=== PATIENT | female | born 1950 ===

== ENCOUNTER 2020-05-25 12:44 | Outpatient (REF) | payer MEDICARE, SELFPAY ==
[2020-05-25 13:37] LABS: MANUAL DIFF FLAG NO
[2020-05-25 13:48] LABS: Basophils Absolute Auto 0.1 X10*3/uL (0.0-0.2); Basophils Percent Auto 0.6 % (0-2); Eosinophils Absolute Auto 0.1 X10*3/uL (0.0-0.4); Eosinophils Percent Auto 1.4 % (0-4); Hematocrit 42.6 % (37-47); Hemoglobin 14.1 g/dl (12.0-16.0); Imm Gran Abs Auto 0.03 X10*3/uL (0.00-0.03); Imm Gran Pct Auto 0.3 % (0.0-0.4); Lymphocytes Absolute Auto 2.1 X10*3/uL (1.2-4.9); Lymphocytes Percent Auto 24.3 % (20-40); Mean Corpuscular HGB Conc 33.1 g/dl (31.0-35.0); Mean Corpuscular Hemoglobin 29.5 pg (27.0-33.0); Mean Corpuscular Volume 89.1 fL (80-98); Mean Platelet Volume 11.9 fL (9.4-12.3); Monocytes Absolute Auto 0.5 X10*3/uL (0.1-1.2); Monocytes Percent Auto 6.1 % (2-11); Neutrophils Absolute Auto 5.9 X10*3/uL (2.0-8.3); Neutrophils Percent Auto 67.3 % (45-73); Platelet Count 278 X10*3/uL (160-400); Red Blood Count 4.78 X10*6/uL (4.20-5.50); Red Cell Distribution Width 13.2 % (11.0-16.0); White Blood Count 8.7 X10*3/uL (4.8-10.8)
[2020-05-25 14:07] LABS: Anion Gap 13 (12-20); Blood Urea Nitrogen 10 mg/dL (9-16); Calcium 9.2 mg/dL (8.4-10.2); Carbon Dioxide 32 mmol/L (22-29); Chloride 99 mmol/L (96-108); Cholesterol 232 mg/dL; Estimated Glomerular Filt Rate > 60; Glucose Fasting 119 mg/dL (60-99); HDL Cholesterol 52 mg/dL; LDL Cholesterol Calculated 160 mg/dl; Potassium 3.4 mmol/l (3.3-5.1); Sodium 141 mmol/L (135-145); Triglycerides 104 mg/dL
[2020-05-25 21:54] LABS: Reflex LDLD? No
== END 2020-05-25 12:45 | disposition home or self-care (01) ==
LOC: HO.LAB 12:44
PROVIDERS: PCP Internal Medicine; Visit Provider Nurse Practitioner Family
DX: G30.9 Alzheimer's disease, unspecified (principal); F02.80 Dementia in other diseases classified elsewhere, unspecified severity, without behavioral disturbance, psychotic disturbance, mood disturbance, and anxiety
CPT/HCPCS: 36415; 80048; 80061; 85025

== ENCOUNTER 2020-05-29 15:19 | Emergency (ER) | payer MEDICARE, SELFPAY ==
[2020-05-29 16:25] VITALS: BP 169/74; PULSE 85; RESP 18; TEMP 37.1; O2SAT 98; BMI 27.4
--- NOTE | 2020-05-29 18:21 | ED_ITS ---
HPI - General Adult General Chief complaint: General Medical Stated complaint: Med Refill Time Seen by Provider: 05/29/20 18:05 Source: family Mode of arrival: ambulatory Limitations: language barrier (The patient's daughter is Italian speaking only, translator interpreter was used to obtain information) History of Present Illness HPI narrative: 69-year-old female who presents emergency department for evaluation of medication refills. The patient has dementia and the information came from the patient's daughter. The patient apparently takes 3 medications for her dementia. They had a routine visit today to see the PCP however the patient PCP has changed and they do not accept the patient's insurance. The daughter was concerned that the patient has 3 medications for her dementia and she does not have these medications therefore she came to the emergency department for evaluation. According to the daughter, the patient has been in her usual state of health with no symptoms of illness. Related Data Home Medications Medication Instructions Recorded Confirmed memantine 10 mg tablet 10 mg PO QPM 05/03/20 Previous Rx's Medication Instructions Recorded donepezil 10 mg PO BEDTIME #30 tab 05/29/20 memantine 10 mg PO QPM 30 Days #30 tab 05/29/20 mirtazapine 30 mg PO BEDTIME #30 tab 05/29/20 Allergies Allergy/AdvReac Type Severity Reaction Status Date / Time No Known Allergies Allergy Verified 05/29/20 16:25 Review of Systems Review of Systems: Yes all other systems are reviewed and are negative PMFSH Past Medical History PMFSH Narrative: The patient lives with her daughter, she does not smoke, she does not drink and she does not use alcohol. Medical History Dementia Social History Social History Advance Directives: No Advance Directives Information Provided: Yes Physical Exam Vital Signs: Vital Signs: Last Vital Signs Temp 98.7 F 05/29/20 16:25 Pulse 85 05/29/20 16:25 Resp 18 05/29/20 16:25 BP 169/74 H 05/29/20 16:25 Pulse Ox 98 05/29/20 16:25 Body Mass Index 27.4 Const: General: cooperative Orientation/consciousness: oriented to person Limitations: no limitations HENMT: Head: Yes normal to inspection, Yes normocephalic and Yes atraumatic Ears: external ears normal General nose exam: Normal external nose present Face and sinus: Yes normal facial exam Mouth: Normal oral and palatal mucosa present Throat: Yes posterior oropharynx normal Eyes: Periorbital: periorbital findings normal Eyelids: Yes eyelids normal Conjunctivae: conjunctivae normal Sclerae: sclerae normal Corneas: corneas normal Pupils: Equal, round and reactive pupils present Direct Ophthalmoscopy: normal light reflex Neck: Neck: Yes full ROM, Yes no lymphadenopathy, Yes no meningeal signs, Yes trachea midline and Yes supple Chest: Chest palpation & inspection: normal inspection of the chest and normal palpation of entire chest wall Resp: Effort & Inspection: normal respiratory effort and able to speak in complete sentences Auscultation: clear to auscultation bilaterally Cardio: Rate: regular rate Rhythm: regular rhythm Heart sounds: S1 normal heart sound present, S2 normal heart sound present and no murmurs GI: Inspection: Yes normal to inspection Palpation (GI): Soft to palpation, nontender, no guarding, not rigid and No hepatosplenomegaly present : General: Yes no CVA tenderness Back/Spine/Pelvis: Back: no CVA tenderness Cervical Spine: normal cervical lordosis Thoracic/Lumbar Spine: thoracic and lumbar spine normal to inspection Skin: Lesions: no lesions Rashes: no rashes Wounds: no wounds Neuro: General: oriented to person and no meningeal signs Cranial nerves: Yes CN's II-XII intact bilaterally and Yes Equal, round and reactive pupils present Motor exam (neuro): 5/5 motor strength present throughout Extrem: General: Yes normal to inspection and Yes full ROM Psych: Appearance: well kempt Mental Status: mental status grossly normal Attitude: cooperative Course Course Course Narrative: 69-year-old female who presents emergency department for evaluation of medication refill for her dementia. Patient has been in her usual state of health and he needs a refill of her medications but was unable to obtain at since her PCP is changed and a new PCP does not accept her insurance. Patient's physical examination was unremarkable except for some slight elevated blood pressure of 169/74. I did contact [facility] and the patient is on the following medications, donepezil 10 mg at night, mirtazapine 30 mg at night, memantine 10 mg daily. I did write a prescription to refill these medications for the patient and the patient was discharged home in the care of her daughter. Discharge Plan Discharge Clinical Impression: Encounter for medication refill Dementia Qualifiers: Dementia type: unspecified type Dementia behavioral disturbance: without behavioral disturbance Qualified Code(s): F03.90 - Unspecified dementia without behavioral disturbance Patient Disposition: Home, Self-Care Additional Instructions: I called [facility] on [facility] and they had the following medications listed for your mother. Donepezil 10 mg at night Mirtazapine 30 mg at night Memantine 10 mg daily I did write a prescription for these 3 medications and sent them to the [facility] on [facility]. When you get home you should make sure that these are the 3 medications that your mother is taking. If these medications are different, please call the emergency department and I will change the medications. Prescriptions: New mirtazapine 30 mg tablet 30 mg PO BEDTIME Qty: 30 RF: 0 memantine 10 mg tablet 10 mg PO QPM 30 Days Qty: 30 RF: 0 donepezil 10 mg tablet 10 mg PO BEDTIME Qty: 30 RF: 0 No Action memantine 10 mg tablet 10 mg PO QPM RF: 0
== END 2020-05-29 19:05 | disposition home or self-care (01) ==
PROVIDERS: Emergency Provider Emergency Medicine Emergency Medical Services; PCP Internal Medicine
DX: F03.90 Unspecified dementia, unspecified severity, without behavioral disturbance, psychotic disturbance, mood disturbance, and anxiety (principal); Z76.0 Encounter for issue of repeat prescription
CPT/HCPCS: 99283; 99284

== ENCOUNTER 2020-08-07 11:58 | Outpatient (REF) | payer MEDICARE, SELFPAY ==
[2020-08-07 13:12] LABS: MANUAL DIFF FLAG NO
[2020-08-07 13:19] LABS: Basophils Absolute Auto 0.1 X10*3/uL (0.0-0.2); Basophils Percent Auto 0.9 % (0-2); Eosinophils Absolute Auto 0.8 X10*3/uL (0.0-0.4); Eosinophils Percent Auto 7.9 % (0-4); Hematocrit 43.7 % (37-47); Hemoglobin 14.2 g/dl (12.0-16.0); Imm Gran Abs Auto 0.07 X10*3/uL (0.00-0.03); Imm Gran Pct Auto 0.7 % (0.0-0.4); Lymphocytes Absolute Auto 2.3 X10*3/uL (1.2-4.9); Lymphocytes Percent Auto 22.6 % (20-40); Mean Corpuscular HGB Conc 32.5 g/dl (31.0-35.0); Mean Corpuscular Hemoglobin 28.9 pg (27.0-33.0); Mean Corpuscular Volume 88.8 fL (80-98); Mean Platelet Volume 12.4 fL (9.4-12.3); Monocytes Absolute Auto 0.9 X10*3/uL (0.1-1.2); Neutrophils Percent Auto 58.9 % (45-73); Platelet Count 259 X10*3/uL (160-400); Red Blood Count 4.92 X10*6/uL (4.20-5.50); Red Cell Distribution Width 13.4 % (11.0-16.0); White Blood Count 10.1 X10*3/uL (4.8-10.8)
[2020-08-07 13:36] LABS: Anion Gap 11 (12-20); Blood Urea Nitrogen 8 mg/dL (9-16); Calcium 8.9 mg/dL (8.4-10.2); Carbon Dioxide 33 mmol/L (22-29); Chloride 99 mmol/L (96-108); Cholesterol 213 mg/dL; Estimated Glomerular Filt Rate > 60; Glucose Fasting 81 mg/dL (60-99); HDL Cholesterol 50 mg/dL; Potassium 3.4 mmol/L (3.3-5.1); Sodium 140 mmol/L (135-145); Triglycerides 479 mg/dL
[2020-08-07 13:46] LABS: Glucose Urine UA NEG (NEG); Leukocyte Esterase Urine NEG (NEG); Nitrite Urine NEG (NEG); PH 6.5 (5.0-8.0); Urine Blood 2+ (NEG); Urine Ketones NEG (NEG); Urine Protein NEG (NEG-TRACE)
[2020-08-07 13:50] LABS: Appearance Urine CLEAR; Color Urine YELLOW
[2020-08-07 14:13] LABS: Vitamin B12 596 pg/mL (200-900)
[2020-08-07 14:19] LABS: Syphilis Screen Nonreactive (Nonreactive)
[2020-08-07 15:07] LABS: WBC Urine 0-2 /HPF (0-4)
== END 2020-08-07 11:59 | disposition home or self-care (01) ==
LOC: HO.LAB 11:58
PROVIDERS: Psychiatry & Neurology Neurology; Absent Provider Internal Medicine; PCP Nurse Practitioner Family; Visit Provider Nurse Practitioner Family
DX: G30.9 Alzheimer's disease, unspecified (principal); F02.80 Dementia in other diseases classified elsewhere, unspecified severity, without behavioral disturbance, psychotic disturbance, mood disturbance, and anxiety; I10 Essential (primary) hypertension
CPT/HCPCS: 36415; 80048; 80061; 81001; 82607; 85025; 86780

== ENCOUNTER 2020-10-04 11:58 | Outpatient (REF) | payer MEDICARE, SELFPAY ==
[2020-10-04 13:17] LABS: Glucose Urine UA NEG (NEG); Leukocyte Esterase Urine NEG (NEG); Nitrite Urine NEG (NEG); PH 7.5 (5.0-8.0); Urine Blood 2+ (NEG); Urine Ketones NEG (NEG); Urine Protein NEG (NEG-TRACE)
[2020-10-04 13:18] LABS: Appearance Urine CLOUDY; Color Urine YELLOW
[2020-10-04 14:01] LABS: Amorphous Sediment Urine 2+ /LPF; Squamous Epithelial Cell Urine TRACE /LPF; WBC Urine 0 /HPF (0-4)
[2020-10-04 14:05] LABS: Cholesterol 224 mg/dL; HDL Cholesterol 56 mg/dL; LDL Cholesterol Calculated 128 mg/dl; Triglycerides 201 mg/dL
== END 2020-10-04 11:59 | disposition home or self-care (01) ==
LOC: HO.LAB 11:58
PROVIDERS: Nurse Practitioner Family; PCP Internal Medicine; Visit Provider Internal Medicine
DX: E11.9 Type 2 diabetes mellitus without complications (principal); I10 Essential (primary) hypertension
CPT/HCPCS: 36415; 80061; 81001; 81003

== ENCOUNTER 2021-09-25 14:47 | Outpatient (REF) | payer MEDICARE, SELFPAY ==
--- NOTE | ~2021-09-25 | XR_ITS ---
EXAMINATION: XR SHOULDER, LEFT CLINICAL INFORMATION: Pain. History of fall yesterday. COMPARISON: None TECHNIQUE: Three views of the left shoulder. FINDINGS: There is question of a nondisplaced fracture of the proximal humerus with a cortical step-off seen in the medial humeral neck and 2 diagonal lines of sclerosis over the humeral head extending to the greater tuberosity. Bone alignment is normal. Glenohumeral joint is normal. There is arthritis at the acromioclavicular joint. Soft tissues are unremarkable. XR/XR shoulder LT min 2V IMPRESSION: Question nondisplaced fracture of the proximal humerus.
== END 2021-09-25 14:48 | disposition home or self-care (01) ==
LOC: HO.XRAY 14:47
PROVIDERS: PCP Internal Medicine; Visit Provider Internal Medicine
DX: M25.512 Pain in left shoulder (principal)
CPT/HCPCS: 73030

== ENCOUNTER 2021-11-17 15:14 | Emergency (ER) | payer MEDICARE, SELFPAY ==
--- NOTE | ~2021-11-17 | CT_ITS ---
EXAMINATION: CT HEAD WITHOUT CONTRAST CLINICAL INFORMATION: Fall COMPARISON: None TECHNIQUE: Contiguous axial imaging was performed from the skull base to vertex without intravenous administration of contrast. This CT examination was performed using dose optimization techniques as appropriate, variously including the following: *Automated exposure control *Adjustment of mA and/or kV according to patient size (this includes techniques or standardized protocols for targeted exams where dose is matched to indication/reason for exam; i.e. extremities or head) *Use of iterative reconstruction technique DLP: 712 mGy-cm FINDINGS: There is no evidence of acute intracranial hemorrhage or territorial infarction. No abnormal mass effect or midline shift is seen. Figueroa to white matter differentiation is well preserved. No extra-axial fluid collections are identified. The ventricles are normal in size. There is mild periventricular white matter hypoattenuation consistent with chronic small vessel ischemic disease. Mild volume loss is noted. No acute fracture is seen. There is mild left frontal scalp soft tissue swelling with focus of gas. There is extensive opacification of the paranasal sinuses with relative sparing of the left sphenoid sinus and posterior ethmoid air cells. CT/CT head/brain wo con IMPRESSION: No acute intracranial findings identified. Mild left frontal scalp soft tissue injury. Extensive paranasal sinus opacification.
--- NOTE | ~2021-11-17 | XR_ITS ---
EXAMINATION: XR KNEE, LEFT CLINICAL INFORMATION: Fall. COMPARISON: None. TECHNIQUE: Four views of the left knee. FINDINGS: Equivocal irregularity of the upper pole of the patella in which a fracture cannot be excluded. No other fractures. No malalignment. Decreased bone mineralization. Mild joint space narrowing of the medial compartment. No chondrocalcinosis. No joint effusion. No unexpected radiopaque foreign bodies. XR/XR knee LT 4V IMPRESSION: 1. Equivocal cortical irregularity of the upper pole of the patella raising the possibility of a fracture. Correlate with a patellar sunrise view. 2. Mild degenerative osteoarthritis of the medial compartment.
--- NOTE | ~2021-11-17 | XR_ITS ---
EXAMINATION: XR HAND, LEFT CLINICAL INFORMATION: Fall, pain. COMPARISON: None TECHNIQUE: PA, lateral, and oblique views of the left hand. FINDINGS: Decreased bone mineralization. No acute fractures or malalignment. Severe degenerative osteoarthritis of the third and fourth DIP joints with significant joint space narrowing and marginal osteophytes. Moderate degenerative osteoarthritis of the first CMC joint and triscaphe space. No erosions. Mild nonspecific soft tissue swelling. No unexpected radiopaque foreign bodies. XR/XR hand LT min 3V IMPRESSION: 1. No acute fracture or malalignment. 2. Multifocal degenerative osteoarthritis, more notable in the distal interphalangeal joints of the third and fourth digits.
[2021-11-17 16:37] VITALS: BP 131/74; PULSE 86; RESP 18; TEMP 37.1; O2SAT 98; BMI 27.4
[2021-11-18 00:21] VITALS: BP 166/80; PULSE 85; RESP 16; TEMP 36.6; O2SAT 98
--- NOTE | 2021-11-18 00:21 | ED_ITS ---
HPI - Fall General Chief Complaint: Fall Stated Complaint: Fall/head in on 11/16 Time Seen by Provider: 11/18/21 00:14 Source: patient and family Mode of arrival: ambulatory Limitations: other (dementia) History of Present Illness MD complaint: fall Onset (ago): day(s) (11/17 after religion in evening) Fall from: standing Fall witnessed: yes, by family Place fall occurred: other (walking up two steps) Loss of consciousness: none Symptoms prior to fall: none Context: tripped/slipped Location of injury: head Location of injury - extremities: left: hand and knee Severity: mild Quality: dull Associated symptoms (after fall): other (pain to hand and knee, abrasion to left face) Related Data Previous Rx's Medication Instructions Recorded multivit with min-folic 1 tab PO DAILY 2 months #60 tabs 06/09/20 acid-lutein 400 mcg-250 mcg chewable tablet (Centrum Silver) mirtazapine 30 mg tablet 30 mg PO BEDTIME #90 tabs 08/20/21 acetaminophen 500 mg tablet 1,000 mg PO Q6H PRN pain (scale 09/11/21 score 7-10) #20 tabs donepezil 10 mg tablet 10 mg PO DAILY #90 tabs 09/11/21 ibuprofen 600 mg tablet 600 mg PO Q8H PRN pain #20 tabs 09/11/21 memantine 10 mg tablet 10 mg PO DAILY #90 tabs 09/13/21 sertraline 25 mg tablet 25 mg PO DAILY #90 tabs 10/10/21 amlodipine 5 mg tablet 5 mg PO DAILY #30 tabs 11/09/21 Allergies Allergy/AdvReac Type Severity Reaction Status Date / Time No Known Allergies Allergy Verified 09/25/21 14:27 Review of Systems Review of Systems: Constitutional : No Fever, No Chills ENT/Mouth : No Ear Pain, No Hoarseness, No sore throat Eyes: No Eye Pain, No Swelling, No Redness, No Foreign Body Cardiovascular : No Chest Pain, No SOB Respiratory : No Cough, No Dyspnea Gastrointestinal : No Nausea, No Vomiting, No Diarrhea, No abdominal Pain Genitourinary : No Dysuria, No Hematuria Musculoskeletal : positive joint pain, No Myalgias, No Joint Swelling Skin : No Skin lacerations, No rash, pos abrasions Neuro : No Weakness, No Numbness, No Loss of Consciousness, No Dizziness, No Headache Psych : No Anxiety/Panic, No Depression Heme/Lymph: no easy bruising, no Lymphadenopathy Endocrine : No Polyuria, No Polydipsia All other systems reviewed and are negative [facility] Past Medical History Source: obtained from family Medical History Alzheimer disease Alzheimer disease Dementia Hypertension Surgical History History of breast surgery Family History Family History Mother Alzheimer disease Other History of breast surgery Social History Social History Housing: Apartment Alcohol intake: never Patient Tobacco Use Status: Never used Tobacco e-Cigarette/Vaping Use: Never Used Second Hand Smoke Exposure: No Advance Directives: No Advance Directives Information Provided: Yes service: No Current occupational status: unemployed Cognitive needs: No Hearing needs: No Vision needs: No Physical Exam Vital Signs: Vital Signs: Last Vital Signs Temp 97.8 F 11/18/21 00:21 Pulse 85 11/18/21 00:21 Resp 16 11/18/21 00:21 BP 166/80 H 11/18/21 00:21 Pulse Ox 98 11/18/21 00:21 O2 Del Method 11/18/21 00:21 BMI result Body Mass Index 27.4 Appearance: Alert. Oriented X3. No acute distress. Eyes: Pupils equal, round and reactive to light. ENT: Pharynx normal. Abrasions and small contusions to L eyebrow and L zygoma area Neck: Normal inspection. Neck supple. CVS: Normal heart rate and rhythm. Pulses normal. Respiratory: No respiratory distress. Breath sounds normal. Abdomen: Soft and nontender. Skin: Skin warm and dry. Normal skin color. Normal skin turgor. Extremities: No lower extremity edema. L knee over patella small contusion, L hand over 4th and 5th metacarpals contusion noted - distal NV intact Neuro: Oriented X 3. No motor deficit. No sensory deficit. Course Course Course Narrative: possible small patella fracture will place in immobilizer and follow up with PCP with repeat xrays in 5 days Procedures Orthopedic Splinting/Casting Injury #1: Side: left Lower Extremity Injury Location: knee Lower Extremity Immobilizer: knee immobilizer MDM - Fall MDM Narrative Medical decision making narrative: 71 yo female with hx of dementia, HTN was walking up the religion stairs and tripped going up the two stairs - has injury to head no blood thinners, given age and dementia will need CT head, xrays of L hand and L knee for falls - dispo per results and findings. Discharge Plan Discharge Clinical Impression: Contusion, Head injury, Injury of left patella Patient Disposition: Home, Self-Care Instructions: Head Injury (ED), Bone Bruise (ED) Additional Instructions: posible derrick?a ?clarita de fractura en la r?jaylin repita las radiograf?as con el m?dico en 5 d?as, use inmovilizador hasta entonces. carga de peso seg?n lo tolerado Prescriptions: No Action mirtazapine 30 mg tablet 30 mg PO BEDTIME Qty: 90 0RF memantine 10 mg tablet 10 mg PO DAILY Qty: 90 0RF sertraline 25 mg tablet 25 mg PO DAILY Qty: 90 8RF amlodipine 5 mg tablet 5 mg PO DAILY Qty: 30 3RF Centrum Silver 400-250 mcg tablet,chewable 1 tab PO DAILY 60 Days Qty: 60 0RF donepezil 10 mg tablet 10 mg PO DAILY Qty: 90 0RF ibuprofen 600 mg tablet 600 mg PO Q8H PRN (Reason: pain) Qty: 20 0RF acetaminophen 500 mg tablet 1,000 mg PO Q6H PRN (Reason: pain (scale score 7-10)) Qty: 20 0RF Referrals: Po,Bhanu Musa MD [Primary Care Provider] - 5 days
== END 2021-11-18 01:20 | disposition home or self-care (01) ==
PROVIDERS: Emergency Provider Emergency Medicine; PCP Internal Medicine
DX: S80.212A Abrasion, left knee, initial encounter (principal); S00.93XA Contusion of unspecified part of head, initial encounter; M79.642 Pain in left hand; G44.309 Post-traumatic headache, unspecified, not intractable; M54.2 Cervicalgia; M25.562 Pain in left knee; I10 Essential (primary) hypertension; W10.9XXA Fall (on) (from) unspecified stairs and steps, initial encounter; Y93.9 Activity, unspecified; Y92.9 Unspecified place or not applicable; Y99.9 Unspecified external cause status; Z79.899 Other long term (current) drug therapy
CPT/HCPCS: 29505; 70450; 73130; 73564; 99283

== ENCOUNTER 2022-06-12 12:15 | Outpatient (REF) | payer MEDICARE, SELFPAY ==
[2022-06-12 12:30] LABS: MANUAL DIFF FLAG NO
[2022-06-12 13:20] LABS: Basophils Absolute Auto 0.1 X10*3/uL (0.0-0.2); Basophils Percent Auto 0.8 % (0-2); Eosinophils Absolute Auto 0.2 X10*3/uL (0.0-0.4); Eosinophils Percent Auto 2.5 % (0-4); Hematocrit 41.8 % (37.0-47.0); Hemoglobin 13.8 g/dl (12.0-16.0); Imm Gran Abs Auto 0.02 X10*3/uL (0.00-0.03); Imm Gran Pct Auto 0.3 % (0.0-0.4); Lymphocytes Absolute Auto 3.3 X10*3/uL (1.2-4.9); Mean Corpuscular Hemoglobin 28.3 pg (27.0-33.0); Mean Corpuscular Volume 85.7 fL (80.0-98.0); Mean Platelet Volume 12.1 fL (9.4-12.3); Monocytes Absolute Auto 0.6 X10*3/uL (0.1-1.2); Monocytes Percent Auto 8.2 % (2-11); Neutrophils Absolute Auto 3.1 x10*3/uL (2.0-8.3); Neutrophils Percent Auto 43.2 % (45-73); Platelet Count 269 X10*3/uL (160-400); Red Blood Count 4.88 X10*6/uL (4.20-5.50); Red Cell Distribution Width 13.9 % (11.0-16.0); White Blood Count 7.2 X10*3/uL (4.8-10.8)
[2022-06-12 14:00] LABS: Anion Gap 16 (12-20); Blood Urea Nitrogen 10 mg/dL (9-16); Carbon Dioxide 25 mmol/L (22-29); Chloride 105 mmol/L (96-108); Estimated Glomerular Filt Rate > 60; Glucose Random 88 mg/dL (60-115); Potassium 3.5 mmol/L (3.3-5.1); Sodium 142 mmol/L (135-145)
[2022-06-12 14:20] LABS: Thyroid Stimulating Hormone 0.35 uIU/mL (0.32-4.0)
== END 2022-06-12 12:16 | disposition home or self-care (01) ==
LOC: HO.LAB 12:15
PROVIDERS: PCP Internal Medicine; Visit Provider Internal Medicine
DX: Z13.0 Encounter for screening for diseases of the blood and blood-forming organs and certain disorders involving the immune mechanism (principal); R51.9 Headache, unspecified; E03.9 Hypothyroidism, unspecified
CPT/HCPCS: 36415; 80048; 84443; 85025

== ENCOUNTER 2022-12-05 11:38 | Outpatient (AMB) | payer MEDICARE, SELFPAY ==
--- NOTE | 2022-12-05 11:40 | MHC.PC.OV ---
Vital Signs 12/05/22 11:42 Height 5 ft 6 in Weight 130 lb 6 oz BMI 21.0 BP 110/62 Blood Pressure Location Lt brachial Position Sitting Pulse 80 Pulse Source Pulse Oximeter Pulse Oximetry (%) 97 Oxygen Delivery Method Room Air Intake Visit Reasons: 6m F/U DM Intake Note: Patient is here to follow up on HTN. 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: Present Accompanied by: Daughter Allergies No Known Allergies Allergy (Verified 12/05/22 11:41) Medication List - Last Reconciled 12/05/22 by Clint Caputo MD acetaminophen 1,000 mg (2 x 500 mg) PO Q6H PRN amlodipine 5 mg PO DAILY donepezil 10 mg PO DAILY ibuprofen 600 mg PO Q8H PRN memantine 10 mg PO DAILY mirtazapine 30 mg PO BEDTIME [id number] acid-lutein 400-250 mcg (Centrum Silver) 1 tab PO DAILY 2 months sertraline 25 mg PO DAILY Tobacco use date assessed: 12/05/22 Fall risk assessment: No Falls in past year Last assessed Fall Risk: 12/05/22 HPI 6m F/U DM HPI Details dementia HTN and depression; stable on meds PFSH Medical History (Updated 12/05/22 @ 12:47 by Clint Caputo MD) Alzheimer disease Alzheimer disease Dementia Hypertension Surgical History History of breast surgery Family History Mother Alzheimer disease Other History of breast surgery Social History Housing: Apartment Alcohol intake: never Patient Tobacco Use Status: Never used Tobacco e-Cigarette/Vaping Use: Never Used Second Hand Smoke Exposure: No service: No Current occupational status: unemployed Cognitive needs: No Hearing needs: No Vision needs: No Questionnaire PHQ-9 Over the last 2 weeks, how often have you been bothered by any of the following problems? 1. Little interest or pleasure in doing things: not at all 2. Feeling down, depressed, or hopeless: not at all 3. Trouble falling or staying asleep, or sleeping too much: not at all 4. Feeling tired or having little energy: not at all 5. Poor appetite or overeating: not at all 6. Feeling bad about yourself - or that you are a failure or have let yourself or your family down: not at all 7. Trouble concentrating on things, such as reading the newspaper or watching television: not at all 8. Moving or speaking so slowly that other people could have noticed. Or the opposite - being so fidgety or restless that you have been moving around a lot more than usual: not at all 9. Thoughts that you would be better off or of hurting yourself in some way: not at all Total score: 0 Depression Screening Interpretation: Negative 99995 - PHQ-9 Billing: Yes Source: Developed by Drs. Bill Diego, Laurie Teague, Sigifredo Nuñez and colleagues, with an educational shari from [employer]. Thrive Questionnaire Date Thrive assessed: 12/05/22 I am a: Patient What is your living situation today?: I have a steady place to live Within the past 12 months, did the food you bought not last and you didn't have the money to get more?: Never true Within the past 12 months, did you worry whether your food would run out before you got money to buy more?: Never true Do you have trouble paying for medicines?: No Do you have trouble getting transportation to medical appointments?: No Do you have trouble paying your heating and electricity bill?: No Do you have trouble taking care of your child, family member or friend?: No Do you have trouble with day-to-day activities such as bathing, preparing meals, shopping, managing finances, etc.?: No Are you currently unemployed and looking for a job?: No Are you interested in more education?: No Currently or been in a relationship where the following occur: no concerns reported AUDIT C Alcohol Use Questionnaire (AUDIT-C) 1. How often do you have a drink containing alcohol?: Never Total Score: 0 Score Reviewed/Action Taken: Yes JULIAN-7 AMB Questionnaire JULIAN-7 Date JULIAN - 7 assessed: 12/05/22 Feeling nervous, anxious, or on edge: 0 = Not at all Not being able to stop or control worryin = Not at all Worrying too much about different things: 0 = Not at all Trouble relaxin = Not at all Being so restless that it is hard to sit still: 0 = Not at all Becoming easily annoyed or irritable: 0 = Not at all Feeling afraid as if something awful might happen: 0 = Not at all Total JULIAN-7 score (0-4 normal; 5-9 mild; 10-14 moderate; 15-21 severe): 0 Source: Developed by Drs. Bill Diego, Laurie Teague, Sigifredo Nuñez and colleagues, with an educational shari from [employer]. JULIAN-7 Assessment Billing JULIAN-7 Assessment Tool: JULIAN-7 Assessment 63721 Review of Systems Const Denies chills, Denies fatigue, Denies headache(s) and Denies weight loss Eyes Denies change in vision, Denies diplopia and Denies eye pain ENT Denies vertigo, Denies dizziness, Denies headache(s) and Denies nasal discharge Card Denies chest pain, Denies rapid heart rate and Denies dyspnea on exertion Resp Denies chest congestion, Denies cough, Denies pain with cough and Denies dyspnea on exertion GI Denies abdominal pain, Denies hematochezia and Denies change in bowel habits Musc Denies myalgias, Denies arthralgias and Denies joint swelling Skin/Breast Denies lesions and Denies unusual bruising Neuro Denies vertigo, Denies dizziness, Denies headache(s) and Denies focal weakness Endo Denies fatigue Physical exam (Primary Care) Vital Signs: Last Vital Signs Pulse 80 12/05/22 11:42 BP 110/62 12/05/22 11:42 Pulse Ox 97 12/05/22 11:42 Oxygen Delivery Method Room Air 12/05/22 11:42 BMI result Body Mass Index 21.0 Tobacco/Smoking Status: Tobacco use Status Tobacco use date assessed 12/05/22 12/05/22 11:42 Patient Tobacco Use Status Never used Tobacco 12/05/22 11:42 e-Cigarette/Vaping Use Never Used 12/05/22 11:42 PHQ-9: PHQ-9 Score PHQ-9: Total score 0 12/05/22 11:42 Depression Screening Interpretation: Negative Thrive Assessment: Date of Thrive Assessment Date Thrive assessed 12/05/22 12/05/22 11:42 Currently or been in a relationship where the following occur: no concerns reported Const General: cooperative, healthy appearing and no acute distress Orientation/consciousness: oriented to person, oriented to place and oriented to time HENMT Head: Yes normal to inspection, Yes normocephalic and Yes atraumatic Mouth: Normal oral and palatal mucosa present and tongue normal Throat: Yes posterior oropharynx normal and Yes uvula midline Eyes General: appearance normal, both eyes and all related structures Neck Neck: Yes normal visual inspection, Yes full ROM and Yes no lymphadenopathy Thyroid: Thyroid normal Carotids: normal carotid upstroke Chest Chest palpation & inspection: normal inspection of the chest Resp Effort & Inspection: normal respiratory effort and able to speak in complete sentences Auscultation: clear to auscultation bilaterally Cardio Jugular venous distension: no JVD Palpation: normal PMI Rate: regular rate Rhythm: regular rhythm Heart sounds: S1 normal heart sound present and S2 normal heart sound present GI Inspection: Yes normal to inspection Palpation (GI): Soft to palpation and No hepatosplenomegaly present Auscultation: normal bowel sounds General: Yes no CVA tenderness Back/Spine/Pelvis Back: no CVA tenderness Skin General skin exam: no rashes or lesions noted Neuro General: oriented to person, oriented to place and oriented to time Extrem General: Yes normal to inspection and Yes full ROM Assessment and Plan Assessment & Plan (1) Alzheimer disease: Code(s): G30.9 - Alzheimer's disease, unspecified; F02.80 - Dementia in other diseases classified elsewhere, unspecified severity, without behavioral disturbance, psychotic disturbance, mood disturbance, and anxiety Plan: stable; same meds (2) Hypertension: Code(s): I10 - Essential (primary) hypertension Plan: stable; same meds (3) Depression: Code(s): F32.A - Depression, unspecified Plan: stable; same meds Orders: Orders Comprehensive [place]. Panel Fast Today N28.9 - Disorder of kidney and ureter, unspecified Lipid Panel Today E78.5 - Hyperlipidemia, unspecified Thyroid Stimulating Hormone Today E03.9 - Hypothyroidism, unspecified Complete Blood Count Auto Diff Today D64.9 - Anemia, unspecified Coding Level of Care Code Est Pt Level 4 (24237) Diagnoses Alzheimer disease G30.9; F02.80 Hypertension I10 Depression F32.A Additional Codes JULIAN-7 Assessment Billing - JULIAN-7 Assessment Tool: JULIAN-7 Assessment [id number] ([id number])
[2022-12-05 11:42] VITALS: BP 110/62; PULSE 80; O2SAT 97; BMI 21.0
== END 2022-12-05 13:12 | disposition home or self-care (01) ==
PROVIDERS: PCP Internal Medicine; Visit Provider Internal Medicine
DX: G30.9 Alzheimer's disease, unspecified (principal); F02.80 Dementia in other diseases classified elsewhere, unspecified severity, without behavioral disturbance, psychotic disturbance, mood disturbance, and anxiety; I10 Essential (primary) hypertension; F32.A Depression, unspecified
CPT/HCPCS: 99214

== ENCOUNTER 2023-06-04 10:52 | Outpatient (REF) | payer MEDICARE, SELFPAY ==
[2023-06-04 11:13] LABS: MANUAL DIFF FLAG NO
[2023-06-04 11:57] LABS: Basophils Absolute Auto 0.1 X10*3/uL (0.0-0.2); Basophils Percent Auto 1.1 % (0-2); Eosinophils Absolute Auto 0.2 X10*3/uL (0.0-0.4); Eosinophils Percent Auto 2.8 % (0-4); Hematocrit 43.5 % (37.0-47.0); Hemoglobin 14.6 g/dl (12.0-16.0); Imm Gran Abs Auto 0.03 X10*3/uL (0.00-0.03); Imm Gran Pct Auto 0.5 % (0.0-0.4); Lymphocytes Absolute Auto 3.2 X10*3/uL (1.2-4.9); Lymphocytes Percent Auto 50.1 % (20-40); Mean Corpuscular HGB Conc 33.6 g/dl (31.0-35.0); Mean Corpuscular Hemoglobin 29.3 pg (27.0-33.0); Mean Corpuscular Volume 87.2 fL (80.0-98.0); Mean Platelet Volume 11.4 fL (9.4-12.3); Monocytes Absolute Auto 0.6 X10*3/uL (0.1-1.2); Monocytes Percent Auto 8.8 % (2-11); Neutrophils Absolute Auto 2.3 x10*3/uL (2.0-8.3); Neutrophils Percent Auto 36.7 % (45-73); Platelet Count 287 X10*3/uL (160-400); Red Blood Count 4.99 X10*6/uL (4.20-5.50); Red Cell Distribution Width 13.7 % (11.0-16.0); White Blood Count 6.4 X10*3/uL (4.8-10.8)
[2023-06-04 12:30] LABS: Alanine Aminotransferase 9 U/L (0-31); Albumin Level 3.7 g/dL (3.5-5.0); Alkaline Phosphatase 98 U/L (39-117); Anion Gap 13 (12-20); Aspartate Amino Transferase 15 U/L (5-31); Bilirubin Total 0.6 mg/dL (0.0-1.0); Blood Urea Nitrogen 9 mg/dL (9-16); Calcium 9.3 mg/dL (8.4-10.2); Carbon Dioxide 31 mmol/L (22-29); Chloride 103 mmol/L (96-108); Cholesterol 228 mg/dL (<200); Estimated Glomerular Filt Rate > 60; Glucose Fasting 92 mg/dL (60-99); HDL Cholesterol 48 mg/dL (>40); LDL Cholesterol Calculated 153 mg/dL (<100); Sodium 144 mmol/L (135-145); Total Protein 8.3 g/dL (6.5-8.0); Triglycerides 136 mg/dL (<150)
[2023-06-04 12:36] LABS: Thyroid Stimulating Hormone 0.61 uIU/mL (0.32-4.0)
== END 2023-06-04 10:53 | disposition home or self-care (01) ==
LOC: HO.LAB 10:52
PROVIDERS: PCP Internal Medicine; Visit Provider Internal Medicine
DX: E03.9 Hypothyroidism, unspecified (principal); E78.5 Hyperlipidemia, unspecified; N28.9 Disorder of kidney and ureter, unspecified; D64.9 Anemia, unspecified
CPT/HCPCS: 36415; 80053; 80061; 84443; 85025

== ENCOUNTER 2023-06-04 11:34 | Outpatient (AMB) | payer MEDICARE, SELFPAY ==
--- NOTE | 2023-06-04 11:36 | A.OFFPC_ITS ---
Vital Signs 06/04/23 11:37 Height 5 ft 6 in Weight 127 lb BMI 20.5 BP 120/74 Blood Pressure Location Lt brachial Position Sitting Pulse 76 Pulse Source Pulse Oximeter Pulse Oximetry (%) 98 Oxygen Delivery Method Room Air Intake Visit Reasons: 6M. 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 Planner: Present Accompanied by: Daughter Allergies No Known Allergies Allergy (Verified 06/04/23 11:37) Medication List - Last Reconciled 06/04/23 by Clint Caputo MD acetaminophen 1,000 mg (2 x 500 mg) PO Q6H PRN amlodipine 5 mg PO DAILY donepezil 10 mg PO DAILY ibuprofen 600 mg PO Q8H PRN memantine 10 mg PO DAILY mirtazapine 30 mg PO BEDTIME [id number] acid-lutein 400-250 mcg (Centrum Silver) 1 tab PO DAILY 2 months sertraline 25 mg PO DAILY trazodone 50 mg PO TID PRN Tobacco use date assessed: 06/04/23 Fall risk assessment: No Falls in past year Last assessed Fall Risk: 06/04/23 Dental Screening Dental Screen Date: 06/04/23 Did you have a dental visit in the last 12 months?: Yes Did you have a dental problem in the last 6 months where you did not have access to dental care?: No Was dental information given to patient?: Patient has dentist HPI 6M. F/U-Alzheimer's HPI Details progressive dementia; family caring for her at home and [facility] Medical History (Updated 12/05/22 @ 12:47 by Clint Caputo MD) Dementia Hypertension Alzheimer disease Alzheimer disease Surgical History History of breast surgery Family History Mother Alzheimer disease Other History of breast surgery Social History Housing: Apartment Alcohol intake: never Patient Tobacco Use Status: Never used Tobacco e-Cigarette/Vaping Use: Never Used Second Hand Smoke Exposure: No service: No Current occupational status: unemployed Cognitive needs: No Hearing needs: No Vision needs: No Questionnaire PHQ-9 Over the last 2 weeks, how often have you been bothered by any of the following problems? 1. Little interest or pleasure in doing things: not at all 2. Feeling down, depressed, or hopeless: not at all 3. Trouble falling or staying asleep, or sleeping too much: not at all 4. Feeling tired or having little energy: not at all 5. Poor appetite or overeating: not at all 6. Feeling bad about yourself - or that you are a failure or have let yourself or your family down: not at all 7. Trouble concentrating on things, such as reading the newspaper or watching television: not at all 8. Moving or speaking so slowly that other people could have noticed. Or the opposite - being so fidgety or restless that you have been moving around a lot more than usual: not at all 9. Thoughts that you would be better off or of hurting yourself in some way: not at all Total score: 0 Depression Screening Interpretation: Negative Depression Screening Done: Yes 66774 - PHQ-9 Billing: Yes Source: Developed by Drs. Bill Diego, Laurie Teague, Sigifredo Nuñez and colleagues, with an educational shari from [facility]. Thrive Questionnaire Date Thrive assessed: 06/04/23 I am a: Patient What is your living situation today?: I have a steady place to live Within the past 12 months, did the food you bought not last and you didn't have the money to get more?: Never true Within the past 12 months, did you worry whether your food would run out before you got money to buy more?: Never true Do you have trouble paying for medicines?: No Do you have trouble getting transportation to medical appointments?: No Do you have trouble paying your heating and electricity bill?: No Do you have trouble taking care of your child, family member or friend?: No Do you have trouble with day-to-day activities such as bathing, preparing meals, shopping, managing finances, etc.?: No Are you currently unemployed and looking for a job?: No Are you interested in more education?: No Please select the resources that you would like help with: None THRIVE Score: 0 AUDIT C Alcohol Use Questionnaire (AUDIT-C) 1. How often do you have a drink containing alcohol?: Never Total Score: 0 Score Reviewed/Action Taken: Yes JULIAN-7 AMB Questionnaire JULIAN-7 Date JULIAN - 7 assessed: 06/04/23 Feeling nervous, anxious, or on edge: 0 = Not at all Not being able to stop or control worryin = Not at all Worrying too much about different things: 0 = Not at all Trouble relaxin = Not at all Being so restless that it is hard to sit still: 0 = Not at all Becoming easily annoyed or irritable: 0 = Not at all Feeling afraid as if something awful might happen: 0 = Not at all Total JULIAN-7 score (0-4 normal; 5-9 mild; 10-14 moderate; 15-21 severe): 0 Source: Developed by Drs. Bill Diego, Laurie Teague, Sigifredo Nuñez and colleagues, with an educational shari from [facility]. Review of Systems Const Denies chills, Denies headache(s) and Denies weight loss ENT Denies headache(s) Card Denies chest pain, Denies syncope, Denies irregular heart rhythm and Denies dyspnea Resp Denies chest congestion, Denies cough and Denies dyspnea GI Denies abdominal pain, Denies change in stool character, Denies nausea and Denies vomiting Musc Denies deformity and Denies joint swelling Neuro Denies syncope and Denies headache(s) Physical exam (Primary Care) Vital Signs: Last Vital Signs Pulse 76 06/04/23 11:37 BP 120/74 06/04/23 11:37 Pulse Ox 98 06/04/23 11:37 Oxygen Delivery Method Room Air 06/04/23 11:37 BMI result Body Mass Index 20.5 Tobacco/Smoking Status: Tobacco use Status Tobacco use date assessed 06/04/23 06/04/23 11:38 Patient Tobacco Use Status Never used Tobacco 06/04/23 11:38 e-Cigarette/Vaping Use Never Used 06/04/23 11:38 PHQ-9: PHQ-9 Score PHQ-9: Total score 0 06/04/23 11:38 Depression Screening Interpretation: Negative Thrive Assessment: Date of Thrive Assessment Date Thrive assessed 06/04/23 06/04/23 11:38 Const General: cooperative, comfortable, no acute distress and alert Neck Neck: Yes no lymphadenopathy Thyroid: Thyroid normal Resp Effort & Inspection: normal respiratory effort Auscultation: clear to auscultation bilaterally Percussion: percussion normal Cardio Jugular venous distension: no JVD Palpation: normal PMI Rate: regular rate Rhythm: regular rhythm Heart sounds: S1 normal heart sound present and S2 normal heart sound present GI Inspection: Yes normal to inspection Palpation (GI): No hepatosplenomegaly present Skin General skin exam: no rashes or lesions noted Extrem General: Yes no clubbing, cyanosis or edema Assessment and Plan Assessment & Plan (1) Alzheimer disease: Code(s): G30.9 - Alzheimer's disease, unspecified; F02.80 - Dementia in other diseases classified elsewhere, unspecified severity, without behavioral disturbance, psychotic disturbance, mood disturbance, and anxiety Plan: stable; same rx Coding Level of Care Code Est Pt Level 3 (93713) Diagnoses Alzheimer disease G30.9; F02.80
[2023-06-04 11:37] VITALS: BP 120/74; PULSE 76; O2SAT 98; BMI 20.5
== END 2023-06-04 11:50 | disposition home or self-care (01) ==
PROVIDERS: PCP Internal Medicine; Visit Provider Internal Medicine
DX: G30.9 Alzheimer's disease, unspecified (principal); F02.80 Dementia in other diseases classified elsewhere, unspecified severity, without behavioral disturbance, psychotic disturbance, mood disturbance, and anxiety
CPT/HCPCS: 99213

== ENCOUNTER 2023-09-02 10:49 | Outpatient (AMB) | payer MEDICARE, SELFPAY ==
[2023-09-02 10:50] VITALS: BP 122/68; PULSE 80; O2SAT 97; BMI 20.2
--- NOTE | 2023-09-02 10:50 | A.OFFPC_ITS ---
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 Accompanied by: Daughter Allergies No Known Allergies Allergy (Verified 09/02/23 10:51) Medication List - Last Reconciled 09/03/23 by Clint Caputo MD acetaminophen 1,000 mg (2 x 500 mg) PO Q6H PRN amlodipine 5 mg PO DAILY donepezil 10 mg PO DAILY ibuprofen 600 mg PO Q8H PRN memantine 10 mg PO DAILY mirtazapine 30 mg PO BEDTIME [id number] acid-lutein 400-250 mcg (Centrum Silver) 1 tab PO DAILY 2 months sertraline 25 mg PO DAILY trazodone 50 mg PO TID PRN Tobacco use date assessed: 06/04/23 Fall risk assessment: No Falls in past year Last assessed Fall Risk: 09/02/23 Dental Screening Dental Screen Date: 06/04/23 HPI 3m f/u HPI Details dementia; cared for by family [facility] Medical History (Updated 12/05/22 @ 12:47 by Clint Caputo MD) Dementia Hypertension Alzheimer disease Alzheimer disease Surgical History History of breast surgery Family History Mother Alzheimer disease Other History of breast surgery Social History Housing: Apartment Alcohol intake: never Patient Tobacco Use Status: Never used Tobacco e-Cigarette/Vaping Use: Never Used Second Hand Smoke Exposure: No service: No Current occupational status: unemployed Cognitive needs: No Hearing needs: No Vision needs: No Questionnaire Thrive Questionnaire Date Thrive assessed: 06/04/23 JULIAN-7 AMB Questionnaire JULIAN-7 Date JULIAN - 7 assessed: 06/04/23 Source: Developed by Drs. Bill Diego, Laurie Teague, Sigifredo Nuñez and colleagues, with an educational shari from [employer]. Review of Systems Const Denies chills, Denies headache(s) and Denies weight loss ENT Denies headache(s) Card Denies chest pain, Denies syncope, Denies irregular heart rhythm and Denies dyspnea Resp Denies chest congestion, Denies cough and Denies dyspnea GI Denies abdominal pain, Denies change in stool character, Denies nausea and Denies vomiting Musc Denies deformity and Denies joint swelling Neuro Denies syncope and Denies headache(s) Physical exam (Primary Care) Vital Signs: Last Vital Signs Pulse 80 09/02/23 10:50 BP 122/68 09/02/23 10:50 Pulse Ox 97 09/02/23 10:50 Oxygen Delivery Method Room Air 09/02/23 10:50 BMI result Body Mass Index 20.2 Tobacco/Smoking Status: Tobacco use Status Tobacco use date assessed 06/04/23 09/02/23 10:53 Patient Tobacco Use Status Never used Tobacco 09/02/23 10:53 e-Cigarette/Vaping Use Never Used 09/02/23 10:53 Thrive Assessment: Date of Thrive Assessment Date Thrive assessed 06/04/23 09/02/23 10:53 Const General: cooperative, comfortable, no acute distress and alert Neck Neck: Yes no lymphadenopathy Thyroid: Thyroid normal Resp Effort & Inspection: normal respiratory effort Auscultation: clear to auscultation bilaterally Percussion: percussion normal Cardio Jugular venous distension: no JVD Palpation: normal PMI Rate: regular rate Rhythm: regular rhythm Heart sounds: S1 normal heart sound present and S2 normal heart sound present GI Inspection: Yes normal to inspection Palpation (GI): No hepatosplenomegaly present Skin General skin exam: no rashes or lesions noted Extrem General: Yes no clubbing, cyanosis or edema Assessment and Plan Assessment & Plan (1) Alzheimer disease: Code(s): G30.9 - Alzheimer's disease, unspecified; F02.80 - Dementia in other diseases classified elsewhere, unspecified severity, without behavioral disturbance, psychotic disturbance, mood disturbance, and anxiety Plan: stable; same rx Coding Level of Care Code Est Pt Level 3 (96481) Diagnoses Alzheimer disease G30.9; F02.80
== END 2023-09-02 11:09 | disposition home or self-care (01) ==
PROVIDERS: PCP Internal Medicine; Visit Provider Internal Medicine
DX: G30.9 Alzheimer's disease, unspecified (principal); F02.80 Dementia in other diseases classified elsewhere, unspecified severity, without behavioral disturbance, psychotic disturbance, mood disturbance, and anxiety
CPT/HCPCS: 99213

== ENCOUNTER 2024-01-02 11:23 | Outpatient (AMB) | payer MEDICARE, SELFPAY ==
[2024-01-02 11:24] VITALS: BP 116/66; PULSE 76; O2SAT 97; BMI 19.2
--- NOTE | 2024-01-02 11:24 | A.OFFPC_ITS ---
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: Yes Casino Surveillance Officer Name: Tess [id number] Allergies No Known Allergies Allergy (Verified 01/02/24 11:28) Medication List - Last Reconciled 01/06/24 by Clint Caputo MD acetaminophen 1,000 mg (2 x 500 mg) PO Q6H PRN amlodipine 5 mg PO DAILY donepezil 10 mg PO DAILY ibuprofen 600 mg PO Q8H PRN memantine 10 mg PO DAILY mirtazapine 30 mg PO BEDTIME [id number] acid-lutein 400-250 mcg (Centrum Silver) 1 tab PO DAILY 2 months sertraline 25 mg PO DAILY trazodone 50 mg PO TID PRN Tobacco use date assessed: 06/04/23 Fall risk assessment: No Falls in past year Last assessed Fall Risk: 01/02/24 Dental Screening Dental Screen Date: 06/04/23 HPI 4mof\u HPI Details HTN on Rx; doing well and compliant [facility] Medical History (Updated 12/05/22 @ 12:47 by Clint Caputo MD) Dementia Hypertension Alzheimer disease Alzheimer disease Surgical History History of breast surgery Family History Mother Alzheimer disease Other History of breast surgery Social History Housing: Apartment Alcohol intake: never Patient Tobacco Use Status: Never used Tobacco Tobacco use type: Cigarette e-Cigarette/Vaping Use: Never Used Second Hand Smoke Exposure: No service: No Current occupational status: unemployed Cognitive needs: No Hearing needs: No Vision needs: No Questionnaire PHQ-9 Over the last 2 weeks, how often have you been bothered by any of the following problems? 1. Little interest or pleasure in doing things: not at all 2. Feeling down, depressed, or hopeless: not at all 3. Trouble falling or staying asleep, or sleeping too much: not at all 4. Feeling tired or having little energy: not at all 5. Poor appetite or overeating: not at all 6. Feeling bad about yourself - or that you are a failure or have let yourself or your family down: not at all 7. Trouble concentrating on things, such as reading the newspaper or watching television: not at all 8. Moving or speaking so slowly that other people could have noticed. Or the opposite - being so fidgety or restless that you have been moving around a lot more than usual: not at all 9. Thoughts that you would be better off or of hurting yourself in some way: not at all Total score: 0 Depression Screening Interpretation: Negative Depression Screening Done: Yes 37086 - PHQ-9 Billing: Yes Source: Developed by Drs. Bill Diego, Laurie Teague, Sigifredo Nuñez and colleagues, with an educational shari from [employer]. Thrive Questionnaire Date Thrive assessed: 06/04/23 AUDIT C Alcohol Use Questionnaire (AUDIT-C) 1. How often do you have a drink containing alcohol?: Never Total Score: 0 Score Reviewed/Action Taken: Yes JULIAN-7 AMB Questionnaire JULIAN-7 Date JULIAN - 7 assessed: 06/04/23 Source: Developed by Drs. Bill Diego, Laurie Teague, Sigifredo Nuñez and colleagues, with an educational shari from [employer]. Review of Systems Const Denies chills, Denies headache(s) and Denies weight loss ENT Denies headache(s) Card Denies chest pain, Denies syncope, Denies irregular heart rhythm and Denies dyspnea Resp Denies chest congestion, Denies cough and Denies dyspnea GI Denies abdominal pain, Denies change in stool character, Denies nausea and Denies vomiting Musc Denies deformity and Denies joint swelling Neuro Denies syncope and Denies headache(s) Physical exam (Primary Care) Vital Signs: Last Vital Signs Pulse 76 01/02/24 11:24 BP 116/66 01/02/24 11:24 Pulse Ox 97 01/02/24 11:24 Oxygen Delivery Method Room Air 01/02/24 11:24 BMI result Body Mass Index 19.2 Tobacco/Smoking Status: Tobacco use Status Tobacco use date assessed 06/04/23 01/02/24 11:26 Patient Tobacco Use Status Never used Tobacco 01/02/24 11:26 Tobacco use type Cigarette 01/02/24 11:31 e-Cigarette/Vaping Use Never Used 01/02/24 11:26 PHQ-9: PHQ-9 Score PHQ-9: Total score 0 01/02/24 11:31 Depression Screening Interpretation: Negative Thrive Assessment: Date of Thrive Assessment Date Thrive assessed 06/04/23 01/02/24 11:26 Const General: cooperative, comfortable, no acute distress and alert Neck Neck: Yes no lymphadenopathy Thyroid: Thyroid normal Resp Effort & Inspection: normal respiratory effort Auscultation: clear to auscultation bilaterally Percussion: percussion normal Cardio Jugular venous distension: no JVD Palpation: normal PMI Rate: regular rate Rhythm: regular rhythm Heart sounds: S1 normal heart sound present and S2 normal heart sound present GI Inspection: Yes normal to inspection Palpation (GI): No hepatosplenomegaly present Skin General skin exam: no rashes or lesions noted Extrem General: Yes no clubbing, cyanosis or edema Assessment and Plan Assessment & Plan (1) Hypertension: Code(s): I10 - Essential (primary) hypertension Plan: stable; same rx Coding Level of Care Code Est Pt Level 3 (65976) Diagnoses Hypertension I10
== END 2024-01-02 11:46 | disposition home or self-care (01) ==
PROVIDERS: PCP Internal Medicine; Visit Provider Internal Medicine
DX: I10 Essential (primary) hypertension (principal)
CPT/HCPCS: 99213

== ENCOUNTER 2024-03-29 08:28 | Outpatient (AMB) | payer MEDICARE, SELFPAY ==
--- NOTE | 2024-03-29 08:30 | A.OFFPC_ITS ---
Vital Signs 03/29/24 08:31 Height 5 ft 6 in Weight 113 lb BMI 18.2 BP 122/68 Blood Pressure Location Lt brachial Position Sitting Pulse 84 Pulse Source Pulse Oximeter Pulse Oximetry (%) 95 Oxygen Delivery Method Room Air Intake Visit Reasons: 3 mo f/u Allergies No Known Allergies Allergy (Verified 03/29/24 08:31) Medication List - Last Reconciled 03/29/24 by Clint Caputo MD acetaminophen 1,000 mg (2 x 500 mg) PO Q6H PRN amlodipine 5 mg PO DAILY donepezil 10 mg PO DAILY ibuprofen 600 mg PO Q8H PRN memantine 10 mg PO DAILY mirtazapine 30 mg PO BEDTIME [id number] acid-lutein 400-250 mcg (Centrum Silver) 1 tab PO DAILY 2 months sertraline 25 mg PO DAILY trazodone 50 mg PO TID PRN Tobacco use date assessed: 06/04/23 Fall risk assessment: No Falls in past year Last assessed Fall Risk: 03/29/24 Dental Screening Dental Screen Date: 06/04/23 HPI 3 mo f/u HPI Details dementia on rx; doing well; compliant; daughter cares for her [facility] Medical History (Updated 12/05/22 @ 12:47 by Clint Caputo MD) Dementia Hypertension Alzheimer disease Alzheimer disease Surgical History History of breast surgery Family History Mother Alzheimer disease Other History of breast surgery Social History Housing: Apartment Alcohol intake: never Patient Tobacco Use Status: Never used Tobacco Tobacco use type: Cigarette e-Cigarette/Vaping Use: Never Used Second Hand Smoke Exposure: No service: No Current occupational status: unemployed Cognitive needs: No Hearing needs: No Vision needs: No Questionnaire Thrive Questionnaire Date Thrive assessed: 06/04/23 AUDIT C Alcohol Use Questionnaire (AUDIT-C) 1. How often do you have a drink containing alcohol?: Never Total Score: 0 Score Reviewed/Action Taken: Yes JULIAN-7 AMB Questionnaire JULIAN-7 Date JULIAN - 7 assessed: 06/04/23 Source: Developed by Drs. Bill L. JohnathonLaurie bazan, Sigifredo Nuñez and colleagues, with an educational shari from [employer] Review of Systems Const Denies chills, Denies headache(s) and Denies weight loss ENT Denies headache(s) Card Denies chest pain, Denies syncope, Denies irregular heart rhythm and Denies dyspnea Resp Denies chest congestion, Denies cough and Denies dyspnea GI Denies abdominal pain, Denies change in stool character, Denies nausea and Denies vomiting Musc Denies deformity and Denies joint swelling Neuro Denies syncope and Denies headache(s) Physical exam (Primary Care) Vital Signs: Last Vital Signs Pulse 84 03/29/24 08:31 BP 122/68 03/29/24 08:31 Pulse Ox 95 03/29/24 08:31 Oxygen Delivery Method Room Air 03/29/24 08:31 BMI result Body Mass Index 18.2 Tobacco/Smoking Status: Tobacco use Status Tobacco use date assessed 06/04/23 03/29/24 08:31 Patient Tobacco Use Status Never used Tobacco 03/29/24 08:31 Tobacco use type Cigarette 03/29/24 08:31 e-Cigarette/Vaping Use Never Used 03/29/24 08:31 Thrive Assessment: Date of Thrive Assessment Date Thrive assessed 06/04/23 03/29/24 08:31 Const General: cooperative, comfortable, no acute distress and alert Neck Neck: Yes no lymphadenopathy Thyroid: Thyroid normal Resp Effort & Inspection: normal respiratory effort Auscultation: clear to auscultation bilaterally Percussion: percussion normal Cardio Jugular venous distension: no JVD Palpation: normal PMI Rate: regular rate Rhythm: regular rhythm Heart sounds: S1 normal heart sound present and S2 normal heart sound present GI Inspection: Yes normal to inspection Palpation (GI): No hepatosplenomegaly present Skin General skin exam: no rashes or lesions noted Extrem General: Yes no clubbing, cyanosis or edema Coding Level of Care Code Est Pt Level 3 (77558) Diagnoses Alzheimer disease G30.9; F02.80 Assessment & Plan Assessment & Plan (1) Alzheimer disease: Code(s): G30.9 - Alzheimer's disease, unspecified; F02.80 - Dementia in other diseases classified elsewhere, unspecified severity, without behavioral disturbance, psychotic disturbance, mood disturbance, and anxiety Category: Medical Plan: stable; same rx
[2024-03-29 08:31] VITALS: BP 122/68; PULSE 84; O2SAT 95; BMI 18.2
== END 2024-03-29 08:45 | disposition home or self-care (01) ==
PROVIDERS: PCP Internal Medicine; Visit Provider Internal Medicine
DX: G30.9 Alzheimer's disease, unspecified (principal); F02.80 Dementia in other diseases classified elsewhere, unspecified severity, without behavioral disturbance, psychotic disturbance, mood disturbance, and anxiety

== ENCOUNTER → 2024-03-29 08:28 | Outpatient (BNVA) | payer MEDICARE, SELFPAY | PROVIDERS: PCP Internal Medicine; Visit Provider Internal Medicine | DX: G30.9 Alzheimer's disease, unspecified (principal); F02.80 Dementia in other diseases classified elsewhere, unspecified severity, without behavioral disturbance, psychotic disturbance, mood disturbance, and anxiety | CPT/HCPCS: 99212 ==

== ENCOUNTER 2024-07-12 11:49 | Outpatient (AMB) | payer MEDICARE, SELFPAY ==
--- NOTE | 2024-07-12 12:00 | A.OFFPC_ITS ---
Vital Signs 07/12/24 12:01 Height 5 ft 6 in Weight 110 lb 4 oz BMI 17.8 BP 126/62 Blood Pressure Location Lt brachial Position Sitting Pulse 67 Pulse Source Pulse Oximeter Temp 97.1 F Temp Source Temporal Artery Scan Pulse Oximetry (%) 98 Oxygen Delivery Method Room Air Intake Visit Reasons: 4mth f/u Intake Note: Patient is here to follow up on HTN. Motion Picture Set Grip Required: Yes Motion Picture Set Grip Language: Toll Gate Keeper Name: Carlota (grand daughter) Information Interpreted: non-clinical & clinical (pt decline inspection and testing supervisor service perfer granddaughter to translate) Wireless Sales Consultant: Present Accompanied by: Grand Child Allergies No Known Allergies Allergy (Verified 07/12/24 12:01) Tobacco use date assessed: 07/12/24 Fall risk assessment: No Falls in past year Last assessed Fall Risk: 07/12/24 Dental Screening Dental Screen Date: 07/12/24 Did you have a dental visit in the last 12 months?: Yes Did you have a dental problem in the last 6 months where you did not have access to dental care?: No Was dental information given to patient?: Patient has dentist HPI 4mth f/u HPI Details progressive dementia; cared for by family at home; total care at this point [facility] Medical History (Updated 12/05/22 @ 12:47 by Clint Caputo MD) Dementia Hypertension Alzheimer disease Alzheimer disease Surgical History History of breast surgery Family History Mother Alzheimer disease Other History of breast surgery Social History Housing: Apartment Alcohol intake: never Patient Tobacco Use Status: Never used Tobacco Tobacco use type: Cigarette e-Cigarette/Vaping Use: Never Used Second Hand Smoke Exposure: No service: No Current occupational status: unemployed Cognitive needs: No Hearing needs: No Vision needs: No Questionnaire PHQ-9 Over the last 2 weeks, how often have you been bothered by any of the following problems? 1. Little interest or pleasure in doing things: not at all 2. Feeling down, depressed, or hopeless: not at all 3. Trouble falling or staying asleep, or sleeping too much: not at all 4. Feeling tired or having little energy: not at all 5. Poor appetite or overeating: not at all 6. Feeling bad about yourself - or that you are a failure or have let yourself or your family down: not at all 7. Trouble concentrating on things, such as reading the newspaper or watching television: not at all 8. Moving or speaking so slowly that other people could have noticed. Or the opposite - being so fidgety or restless that you have been moving around a lot more than usual: not at all 9. Thoughts that you would be better off or of hurting yourself in some way: not at all Total score: 0 Depression Screening Interpretation: Negative Depression Screening Done: Yes Source: Developed by Drs. Bill Diego, Laurie Teague, Sigifredo Nuñez and colleagues, with an educational shari from [employer]. Thrive Questionnaire Date Thrive assessed: 07/12/24 I am a: Patient What is your living situation today?: I have a steady place to live Within the past 12 months, did the food you bought not last and you didn't have the money to get more?: Never true Within the past 12 months, did you worry whether your food would run out before you got money to buy more?: Never true Do you have trouble paying for medicines?: No Do you have trouble getting transportation to medical appointments?: No Do you have trouble paying your heating and electricity bill?: No Do you have trouble taking care of your child, family member or friend?: No Do you have trouble with day-to-day activities such as bathing, preparing meals, shopping, managing finances, etc.?: No Are you currently unemployed and looking for a job?: No Are you interested in more education?: No Please select the resources that you would like help with: None Currently or been in a relationship where the following occur: No concerns reported THRIVE Score: 0 AUDIT C Alcohol Use Questionnaire (AUDIT-C) 1. How often do you have a drink containing alcohol?: Never 3. How often do you have six or more drinks on one occasion?: Never Total Score: 0 JULIAN-7 AMB Questionnaire JULIAN-7 Date JULIAN - 7 assessed: 07/12/24 Feeling nervous, anxious, or on edge: 0 = Not at all Not being able to stop or control worryin = Not at all Worrying too much about different things: 0 = Not at all Trouble relaxin = Not at all Being so restless that it is hard to sit still: 0 = Not at all Becoming easily annoyed or irritable: 0 = Not at all Feeling afraid as if something awful might happen: 0 = Not at all Total JULIAN-7 score (0-4 normal; 5-9 mild; 10-14 moderate; 15-21 severe): 0 Source: Developed by Drs. Bill Diego, Laurie Teague, Sigifredo Nuñez and colleagues, with an educational shari from [employer]. Review of Systems Const Denies chills, Denies headache(s) and Denies weight loss ENT Denies headache(s) Card Denies chest pain, Denies syncope, Denies irregular heart rhythm and Denies dyspnea Resp Denies chest congestion, Denies cough and Denies dyspnea GI Denies abdominal pain, Denies change in stool character, Denies nausea and Denies vomiting Musc Denies deformity and Denies joint swelling Neuro Denies syncope and Denies headache(s) Physical exam (Primary Care) Vital Signs: Last Vital Signs Temp 97.1 F 07/12/24 12:01 Pulse 67 07/12/24 12:01 BP 126/62 07/12/24 12:01 Pulse Ox 98 07/12/24 12:01 Oxygen Delivery Method Room Air 07/12/24 12:01 BMI result Body Mass Index 17.8 Tobacco/Smoking Status: Tobacco use Status Tobacco use date assessed 07/12/24 07/12/24 12:05 Patient Tobacco Use Status Never used Tobacco 07/12/24 12:05 Tobacco use type Cigarette 07/12/24 12:05 e-Cigarette/Vaping Use Never Used 07/12/24 12:05 PHQ-9: PHQ-9 Score PHQ-9: Total score 0 07/12/24 12:05 Depression Screening Interpretation: Negative Thrive Assessment: Date of Thrive Assessment Date Thrive assessed 07/12/24 07/12/24 12:05 Currently or been in a relationship where the following occur: No concerns reported Const General: cooperative, comfortable and no acute distress Neck Neck: Yes no lymphadenopathy Thyroid: Thyroid normal Resp Effort & Inspection: normal respiratory effort Auscultation: clear to auscultation bilaterally Percussion: percussion normal Cardio Jugular venous distension: no JVD Palpation: normal PMI Rate: regular rate Rhythm: regular rhythm Heart sounds: S1 normal heart sound present and S2 normal heart sound present GI Inspection: Yes normal to inspection Palpation (GI): No hepatosplenomegaly present Skin General skin exam: no rashes or lesions noted Extrem General: Yes no clubbing, cyanosis or edema Coding Level of Care Code Est Pt Level 3 (77857) Diagnoses Alzheimer disease G30.9; F02.80 Assessment & Plan Assessment & Plan (1) Alzheimer disease: Code(s): G30.9 - Alzheimer's disease, unspecified; F02.80 - Dementia in other diseases classified elsewhere, unspecified severity, without behavioral disturbance, psychotic disturbance, mood disturbance, and anxiety Category: Medical Plan: same rx; progressive disease Orders: Referrals Podiatry Referral L60.9 - Nail disorder, unspecified
[2024-07-12 12:01] VITALS: BP 126/62; PULSE 67; TEMP 36.2; O2SAT 98; BMI 17.8
--- OUTSIDE RECORDS SUMMARY | 2024-07-12 13:31 | XMS_ITS | Clinical Summary ---
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 Name Role Phone Unavailable Primary Care Provider Unavailabl e Social History Tobacco Use Types Packs/Day Years Used Date Smoking Tobacco: Never Assessed Comments Unknown Sex and Gender Information Value Date Recorded Sex Assigned at Not on file Legal Sex Female 11:38 AM EST Gender Identity Not on file Sexual Orientation Not on file Plan of Treatment Health Maintenance Due Date Last Done Comments DTaP,Tdap,and Td Vaccines (1 - Tdap) 1968 Pneumococcal Vaccine: 50+ Ye ars (1 of 1 - PCV) 1999 Zoster Vaccines (1 of 2) 1999 Colorectal Cancer Screening: Colonoscopy 04/02/2022 Depression Screening 04/02/2022 Falls Risk Assessment 04/02/2022 Hepatitis C Screening 04/02/2022 Osteoporosis Screening (Bone Density Screening) 04/02/2022 Social Influencers of Health Screening 04/02/2022 COVID-19 Vaccine (1 - 2023-2 5 season) 2024 Influenza Vaccine (#1) 2024 RSV Immunization Patients 60 + Years Old (1 - 1-dose 75+ series) 2024 HIB Vaccines Aged Out No longer eligi ble based on patient's age to complete this topic HPV Vaccines Aged Out No longer eligi ble based on patient's age to complete this topic Hepatitis A Vaccines Aged Out No long er eligible based on patient's age to complete this topic Hepatitis B Vaccines Aged Out No long er eligible based on patient's age to complete this topic IPV Vaccines Aged Out No longer eligi ble based on patient's age to complete this topic MMR Vaccines Aged Out No longer eligi ble based on patient's age to complete this topic Meningococcal ACWY Vaccine Aged Out N o longer eligible based on patient's age to complete this topic Meningococcal B Vacine Aged Out No lo nger eligible based on patient's age to complete this topic RSV Immunization Patients Un crystal 20 months Aged Out No longer eligible b ased on patient's age to complete this topic Varicella Vaccines Aged Out No longer eligible based on patient's age to complete this topic
== END 2024-07-12 12:20 | disposition home or self-care (01) ==
PROVIDERS: PCP Internal Medicine; Visit Provider Internal Medicine
DX: G30.9 Alzheimer's disease, unspecified (principal); F02.80 Dementia in other diseases classified elsewhere, unspecified severity, without behavioral disturbance, psychotic disturbance, mood disturbance, and anxiety

== ENCOUNTER → 2024-07-12 11:49 | Outpatient (BNVA) | payer MEDICARE, SELFPAY | PROVIDERS: PCP Internal Medicine; Visit Provider Internal Medicine | DX: G30.9 Alzheimer's disease, unspecified (principal); F02.80 Dementia in other diseases classified elsewhere, unspecified severity, without behavioral disturbance, psychotic disturbance, mood disturbance, and anxiety | CPT/HCPCS: 99212 ==

== ENCOUNTER 2024-08-19 11:32 | Outpatient (AMB) | payer MEDICARE, SELFPAY ==
[2024-08-19 11:36] VITALS: BP 128/64; PULSE 73; RESP 18; TEMP 36.1; O2SAT 98; BMI 18.5
--- NOTE | 2024-08-19 11:36 | MHC.PC.OV ---
Vital Signs 08/19/24 11:36 Height 5 ft 6 in Weight 114 lb 9.6 oz BMI 18.5 BP 128/64 Blood Pressure Location Lt brachial Position Sitting Respiration 18 Pulse 73 Pulse Source Pulse Oximeter Temp 96.9 F Temp Source Temporal Artery Scan Pulse Oximetry (%) 98 Oxygen Delivery Method Room Air Intake Visit Reasons: discuss Power of Email Marketing Manager/NAYANA DR Caputo Third Shift Lieutenant Required: Yes Third Shift Lieutenant Language: Bore Mill Operator For Plastic Name: Used tablet: Rama [id number] Accompanied by: Grand Child Allergies No Known Allergies Allergy (Verified 08/19/24 11:54) Medication List - Last Reconciled 08/19/24 by Tatiana Smith PA-C acetaminophen 1,000 mg (2 x 500 mg) PO Q6H PRN amlodipine 5 mg PO DAILY donepezil 10 mg PO DAILY ibuprofen 600 mg PO Q8H PRN memantine 10 mg PO DAILY mirtazapine 30 mg PO BEDTIME [id number] acid-lutein 400-250 mcg (Centrum Silver) 1 tab PO DAILY 2 months sertraline 25 mg PO DAILY trazodone 50 mg PO TID PRN trazodone 50 mg PO TID PRN Tobacco use date assessed: 08/19/24 Fall risk assessment: 1 Fall in past year Last assessed Fall Risk: 08/19/24 Dental Screening Dental Screen Date: 08/19/24 Did you have a dental visit in the last 12 months?: No Did you have a dental problem in the last 6 months where you did not have access to dental care?: No Was dental information given to patient?: No HPI discuss Power of Email Marketing Manager/NAYANA DR Caputo HPI Details 74-year-old female with past medical history of hypertension, Alzheimer's, depression last seen 07/[address] Caputo coming in for transfer care. spanish medical interpreter [id number] Rama was used for the duration of this visit. Patient presents with her granddaughter today. They are presenting for follow up on chronic conditions. At this time the patient is relying primarily on family members for her ADLs. She does not dress, bathe, feed or medicate herself. The granddaughter is providing these services and they are working on establishing her as the patient's STREETCAR MOTORMAN through [facility]. No concerns today and no change in her mental or functional status. PFSH Medical History Dementia Hypertension Alzheimer disease Alzheimer disease Surgical History History of breast surgery Family History Mother Alzheimer disease Other History of breast surgery Social History Housing: Apartment Alcohol intake: never Patient Tobacco Use Status: Never used Tobacco Tobacco use type: Cigarette e-Cigarette/Vaping Use: Never Used Second Hand Smoke Exposure: No service: No Current occupational status: unemployed Cognitive needs: No Hearing needs: No Vision needs: No Questionnaire Thrive Questionnaire Date Thrive assessed: 08/19/24 I am a: Parent/Caregiver What is your living situation today?: I have a steady place to live Within the past 12 months, did the food you bought not last and you didn't have the money to get more?: Never true Within the past 12 months, did you worry whether your food would run out before you got money to buy more?: Never true Do you have trouble paying for medicines?: No Do you have trouble getting transportation to medical appointments?: No Do you have trouble paying your heating and electricity bill?: No Do you have trouble taking care of your child, family member or friend?: No Do you have trouble with day-to-day activities such as bathing, preparing meals, shopping, managing finances, etc.?: No Are you currently unemployed and looking for a job?: No Are you interested in more education?: No Please select the resources that you would like help with: None Currently or been in a relationship where the following occur: No concerns reported THRIVE Score: 0 AUDIT C Alcohol Use Questionnaire (AUDIT-C) 1. How often do you have a drink containing alcohol?: Never 3. How often do you have six or more drinks on one occasion?: Never Total Score: 0 Score Reviewed/Action Taken: No JULIAN-7 AMB Questionnaire JULIAN-7 Date JULIAN - 7 assessed: 07/12/24 Source: Developed by Drs. Bill Diego, Laurie Teague, Sigifredo Nuñez and colleagues, with an educational shari from [employer]. Review of Systems Const Details: obtained through patient's granddaughter Denies fever(s), Denies headache(s) and Denies poor appetite Eyes Reports no additional complaints ENT Denies dysphagia, Denies dizziness and Denies headache(s) Card Denies chest pain, Denies syncope and Denies dyspnea Resp Denies cough and Denies dyspnea GI Denies dysphagia, Denies nausea and Denies vomiting Reports no additional complaints Musc Reports no additional complaints and Denies abnormal gait Skin/Breast Reports system reviewed and no additional complaints, except as documented Neuro Denies abnormal gait, Denies dizziness, Denies syncope and Denies headache(s) Psych Reports no additional complaints Physical exam (Primary Care) Vital Signs: Last Vital Signs Temp 96.9 F 08/19/24 11:36 Pulse 73 08/19/24 11:36 Resp 18 08/19/24 11:36 BP 128/64 08/19/24 11:36 Pulse Ox 98 08/19/24 11:36 Oxygen Delivery Method Room Air 08/19/24 11:36 BMI result Body Mass Index 18.5 Tobacco/Smoking Status: Tobacco use Status Tobacco use date assessed 08/19/24 08/19/24 11:39 Patient Tobacco Use Status Never used Tobacco 08/19/24 11:39 Tobacco use type Cigarette 08/19/24 11:39 e-Cigarette/Vaping Use Never Used 08/19/24 11:39 Thrive Assessment: Date of Thrive Assessment Date Thrive assessed 08/19/24 08/19/24 11:48 Currently or been in a relationship where the following occur: No concerns reported Const General: cooperative, healthy appearing, comfortable and no acute distress Orientation/consciousness: patient oriented x3 HENMT Head: Yes normocephalic Ears: hearing grossly normal bilaterally General nose exam: Normal external nose present Eyes General: appearance normal, both eyes and all related structures Conjunctivae: conjunctivae normal Neck Neck: Yes full ROM and Yes no lymphadenopathy Resp Effort & Inspection: normal respiratory effort Auscultation: clear to auscultation bilaterally, no crackles, no rales, no rhonchi and no wheezes Cardio Rate: regular rate Rhythm: regular rhythm Skin General skin exam: no rashes or lesions noted Neuro General: patient oriented x3 Gait exam (Neuro): Normal gait present Extrem General: Yes normal to inspection, Yes full ROM and No edema Psych Affect: normal affect Attitude: cooperative Coding Level of Care Code Est Pt Level 3 (12601) Diagnoses Alzheimer disease G30.9; F02.80 Hypertension I10 Depression F32.A Assessment & Plan Assessment & Plan (1) Alzheimer disease: Code(s): G30.9 - Alzheimer's disease, unspecified; F02.80 - Dementia in other diseases classified elsewhere, unspecified severity, without behavioral disturbance, psychotic disturbance, mood disturbance, and anxiety Category: Medical Plan: Progressive disease patient is relying primarily on family at this time for activities of daily living. Plan to obtain STREETCAR MOTORMAN services for this patient and we will await paperwork. Patient's mental status and functional status has not changed per the granddaughter. (2) Hypertension: Code(s): I10 - Essential (primary) hypertension Category: Medical Plan: Continue on current blood pressure medication. Avoid salt intake and encourage healthy diet and regular exercise. (3) Depression: Code(s): F32.A - Depression, unspecified Category: Medical Plan: Patient is on multiple different antidepressants advised to bring pill bottles to next visit to verify med list. Medications: Refilled mirtazapine 30 mg PO BEDTIME 90 tabs 1RF
--- OUTSIDE RECORDS SUMMARY | 2024-08-19 14:20 | XMS_ITS | Clinical Summary ---
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 Name Role Phone Unavailable Primary Care Provider [...] Influencers of Health Screening 04/02/2022 COVID-19 Vaccine ( - 2023-2 5 season) 2024 RSV Immunization Adult Patie nts (1 - 1-dose 75+ series) 2024 Influenza Vaccine (Season Ended) 2025 HIB Vaccines Aged Out No longer eligi [...] age to complete this topic Meningococcal B Vaccine Aged Out No l onger eligible based on patient's age to complete this topic RSV Immunization Patients Un crystal 20 months Aged Out No longer eligible b ased on patient's age to complete this topic Varicella Vaccines Aged Out No longer eligible based on patient's age to complete this topic
== END 2024-08-19 12:28 | disposition home or self-care (01) ==
LOC: HO.HMCH 11:32
PROVIDERS: PCP Internal Medicine
DX: G30.9 Alzheimer's disease, unspecified (principal); F02.80 Dementia in other diseases classified elsewhere, unspecified severity, without behavioral disturbance, psychotic disturbance, mood disturbance, and anxiety; I10 Essential (primary) hypertension; F32.A Depression, unspecified

== ENCOUNTER → 2024-08-19 11:32 | Outpatient (BNVA) | payer MEDICARE, SELFPAY | PROVIDERS: PCP Internal Medicine | DX: G30.9 Alzheimer's disease, unspecified (principal); F02.80 Dementia in other diseases classified elsewhere, unspecified severity, without behavioral disturbance, psychotic disturbance, mood disturbance, and anxiety; I10 Essential (primary) hypertension; F32.A Depression, unspecified | CPT/HCPCS: 99212 ==

== ENCOUNTER 2024-11-15 11:30 | Outpatient (AMB) | payer MEDICARE, MEDICAID, SELFPAY ==
--- NOTE | 2024-11-15 11:41 | MHC.PC.OV ---
Vital Signs 11/15/24 11:42 11/15/24 12:04 Height 5 ft 6 in Weight 117 lb 1.047 oz BMI 18.9 BP 108/58 L 110/60 Blood Pressure Location Lt brachial Lt brachial Position Sitting Sitting Pulse Source Pulse Oximeter Oxygen Delivery Method Room Air Intake Visit Reasons: 4 Month F/U Chief Cardiopulmonary Technologist Required: No Accompanied by: Grand Child Allergies No Known Allergies Allergy (Verified 11/15/24 11:53) Medication List - Last Reconciled 11/15/24 by Tatiana Smith PA-C acetaminophen 1,000 mg (2 x 500 mg) PO Q6H PRN [adult pull ups As directed; QID ] amlodipine 5 mg PO DAILY disposable gloves (Nitrile Exam Gloves) As directed; QID [disposable wipes As directed; QID] donepezil 10 mg PO DAILY ibuprofen 600 mg PO Q8H PRN [incontinence pads As directed; QID] memantine 10 mg PO DAILY mirtazapine 30 mg PO BEDTIME [id number] acid-lutein 400-250 mcg (Centrum Silver) 1 tab PO DAILY 2 months sertraline 25 mg PO DAILY trazodone 50 mg PO TID PRN Tobacco use date assessed: 11/15/24 Fall risk assessment: No Falls in past year Last assessed Fall Risk: 11/15/24 Dental Screening Dental Screen Date: 11/15/24 Did you have a dental visit in the last 12 months?: No Did you have a dental problem in the last 6 months where you did not have access to dental care?: No Was dental information given to patient?: No HPI 4 Month F/U HPI Details 74-year-old female with past medical history of hypertension, Alzheimer's, depression last seen 08/2024 coming in for follow up. Presenting with medication management and new symptoms of diarrhea and halitosis. The patient is on amlodipine for blood pressure management, with refills requested during the visit. The patient experienced diarrhea recently, with episodes occurring three times in one night. No new foods were introduced. Diarrhea began two days ago without known trigger and stools have been improving. The patient has been experiencing bad breath, potentially related to dental issues, and a dental evaluation was recommended. [facility] Medical History Dementia Hypertension Alzheimer disease Alzheimer disease Surgical History History of breast surgery Family History Mother Alzheimer disease Other History of breast surgery Social History Housing: Apartment Alcohol intake: never Patient Tobacco Use Status: Never used Tobacco Tobacco use type: Cigarette e-Cigarette/Vaping Use: Never Used Second Hand Smoke Exposure: No service: No Current occupational status: unemployed Cognitive needs: No Hearing needs: No Vision needs: No Questionnaire PHQ-9 Over the last 2 weeks, how often have you been bothered by any of the following problems? 1. Little interest or pleasure in doing things: nearly every day 2. Feeling down, depressed, or hopeless: not at all 3. Trouble falling or staying asleep, or sleeping too much: nearly every day 4. Feeling tired or having little energy: more than half the days 5. Poor appetite or overeating: not at all 6. Feeling bad about yourself - or that you are a failure or have let yourself or your family down: not at all 7. Trouble concentrating on things, such as reading the newspaper or watching television: nearly every day 8. Moving or speaking so slowly that other people could have noticed. Or the opposite - being so fidgety or restless that you have been moving around a lot more than usual: nearly every day 9. Thoughts that you would be better off or of hurting yourself in some way: not at all Total score: 14 Depression Screening Interpretation: Positive Depression Screening Follow-up: Existing condition and In treatment Depression Screening Done: Yes 40308 - PHQ-9 Billing: Yes Source: Developed by Drs. Bill Diego, Laurie Teague, Sigifredo Nuñez and colleagues, with an educational shari from [employer]. Thrive Questionnaire Date Thrive assessed: 11/15/24 I am a: Parent/Caregiver What is your living situation today?: I have a steady place to live Within the past 12 months, did the food you bought not last and you didn't have the money to get more?: Never true Within the past 12 months, did you worry whether your food would run out before you got money to buy more?: Never true Do you have trouble paying for medicines?: No Do you have trouble getting transportation to medical appointments?: No Do you have trouble paying your heating and electricity bill?: No Do you have trouble taking care of your child, family member or friend?: No Do you have trouble with day-to-day activities such as bathing, preparing meals, shopping, managing finances, etc.?: No Are you currently unemployed and looking for a job?: No Are you interested in more education?: I choose not to answer this question Please select the resources that you would like help with: None Currently or been in a relationship where the following occur: No concerns reported THRIVE Score: 0 AUDIT C Alcohol Use Questionnaire (AUDIT-C) 1. How often do you have a drink containing alcohol?: Never Total Score: 0 JULIAN-7 AMB Questionnaire JULIAN-7 Date JULIAN - 7 assessed: 11/15/24 Feeling nervous, anxious, or on edge: 3 = Nearly every day Not being able to stop or control worryin = Not at all Worrying too much about different things: 0 = Not at all Trouble relaxin = Not at all Being so restless that it is hard to sit still: 1 = Several days Becoming easily annoyed or irritable: 0 = Not at all Feeling afraid as if something awful might happen: 1 = Several days Total JULIAN-7 score (0-4 normal; 5-9 mild; 10-14 moderate; 15-21 severe): 5 Source: Developed by Drs. Bill Diego, Laurie Teague, Sigifredo Nuñez and colleagues, with an educational shari from [employer]. JULIAN-7 Assessment Billing JULIAN-7 Assessment Tool: JULIAN-7 Assessment 79328 Review of Systems Const Denies body aches, Denies chills, Denies fever(s), Denies headache(s) and Denies poor appetite Eyes Reports no additional complaints ENT Denies dysphagia, Denies dizziness, Denies headache(s) and Denies odynophagia Card Denies chest pain, Denies syncope, Denies edema, Denies irregular heart rhythm, Denies lightheadedness and Denies dyspnea Resp Denies cough and Denies dyspnea GI Denies abdominal pain, Denies constipation, Denies dysphagia, Reports diarrhea, Denies nausea, Denies odynophagia and Denies vomiting Reports no additional complaints Musc Reports no additional complaints and Denies abnormal gait Skin/Breast Reports system reviewed and no additional complaints, except as documented Neuro Denies abnormal gait, Denies dizziness, Denies syncope and Denies headache(s) Psych Reports no additional complaints Physical exam (Primary Care) Vital Signs: Last Vital Signs BP 110/60 11/15/24 12:04 Oxygen Delivery Method Room Air 11/15/24 11:42 BMI result Body Mass Index 18.9 Tobacco/Smoking Status: Tobacco use Status Tobacco use date assessed 11/15/24 11/15/24 11:50 Patient Tobacco Use Status Never used Tobacco 11/15/24 11:50 Tobacco use type Cigarette 11/15/24 11:50 e-Cigarette/Vaping Use Never Used 11/15/24 11:50 PHQ-9: PHQ-9 Score PHQ-9: Total score 14 11/15/24 11:55 Depression Screening Interpretation: Positive Depression Screening Follow-up: Existing condition and In treatment Thrive Assessment: Date of Thrive Assessment Date Thrive assessed 11/15/24 11/15/24 11:50 Currently or been in a relationship where the following occur: No concerns reported Const General: cooperative, healthy appearing, comfortable and no acute distress Orientation/consciousness: patient oriented x3 HENMT Head: Yes normocephalic Ears: hearing grossly normal bilaterally General nose exam: Normal external nose present Eyes General: appearance normal, both eyes and all related structures Conjunctivae: conjunctivae normal Neck Neck: Yes full ROM and Yes no lymphadenopathy Resp Effort & Inspection: normal respiratory effort Auscultation: clear to auscultation bilaterally, no crackles, no rales, no rhonchi and no wheezes Cardio Rate: regular rate Rhythm: regular rhythm GI Palpation (GI): Soft to palpation, not firm, nontender, no guarding, not rigid and No Rebound tenderness present Skin General skin exam: no rashes or lesions noted Neuro General: patient oriented x3 Gait exam (Neuro): Normal gait present Extrem General: Yes normal to inspection, Yes full ROM and No edema Psych Affect: normal affect Attitude: cooperative Insight: Poor insight present (Psych) Judgement: Poor judgement present (Psych) Coding Level of Care Code Est Pt Level 3 (59749) Diagnoses Alzheimer disease G30.9; F02.80 Hypertension I10 Depression F32.A Diarrhea R19.7 Halitosis R19.6 Additional Codes JULIAN-7 Assessment Billing - JULIAN-7 Assessment Tool: JULIAN-7 Assessment 77026 ([id number]) PHQ-9 - 89129 - PHQ-9 Billing: Yes ([id number]) Assessment & Plan Assessment & Plan (1) Alzheimer disease: Code(s): G30.9 - Alzheimer's disease, unspecified; F02.80 - Dementia in other diseases classified elsewhere, unspecified severity, without behavioral disturbance, psychotic disturbance, mood disturbance, and anxiety Category: Medical Plan: Progressive disease patient is relying primarily on family at this time for activities of daily living. Plan to obtain [employer] services for this patient and we will await paperwork. Patient's mental status and functional status has not changed per the granddaughter. (2) Hypertension: Code(s): I10 - Essential (primary) hypertension Category: Medical Plan: Continue on current blood pressure medication. Avoid salt intake and encourage healthy diet and regular exercise. (3) Depression: Code(s): F32.A - Depression, unspecified Category: Medical Plan: Patient is on multiple different antidepressants which were verified today and updated in the chart. (4) Diarrhea: Code(s): R19.7 - Diarrhea, unspecified Category: Medical Plan: Patient has been having diarrhea for the last two days. Advised increased water intake with electrolytes (ex/gatorade). Also recommended fiber supplement to bulk the stools. If diarrhea persists to reach out to the office. (5) Halitosis: Code(s): R19.6 - Halitosis Category: Medical Plan: No abnormality on exam recommend dental follow up as patient does have broken tooth per granddaughter. Plan Refills for amlodipine and donepezil were provided to manage hypertension and cognitive impairment, respectively. The patient was advised to monitor blood pressure at home, especially during episodes of diarrhea, and to hold amlodipine if blood pressure drops too low. A fiber supplement was recommended to help manage diarrhea, and the patient was instructed to maintain adequate hydration with water and electrolyte solutions. A dental evaluation was recommended to address halitosis, potentially related to dental issues. This note was constructed using voice recognition software. While every effort has been made to ensure accuracy and machine builder, still areas may have been included sometimes these areas may affect the content or meeting of the given symptoms. Total time spent caring for the patient today was 20 minutes. This includes time spent before the visit reviewing the chart, time spent during the visit, and time spent after the visit and documentation. Patient was informed and verbally consented to the use of an ambient scribe for clinic note documentation during this visit. Medications: New psyllium husk (Metamucil) 0.4 grams PO BEDTIME 30 caps 0RF blood pressure monitor As directed; to check BP daily 1 ea 0RF I10 - Essential (primary) hypertension Refilled amlodipine 5 mg PO DAILY 90 tabs 1RF mirtazapine 30 mg PO BEDTIME 90 tabs 1RF trazodone 50 mg PO TID PRN 60 tabs 1RF anxiety [disposable wipes] As directed; QID 100 ea 3RF F02.80 - Dementia in other diseases classified elsewhere, unspecified severity, without behavioral disturbance, psychotic disturbance, mood disturbance, and anxiety, G30.9 - Alzheimer's disease, unspecified, R32 - Unspecified urinary incontinence donepezil 10 mg PO DAILY 90 tabs 8RF sertraline 25 mg PO DAILY 90 tabs 0RF [incontinence pads] As directed; QID 120 ea 0RF F02.80 - Dementia in other diseases classified elsewhere, unspecified severity, without behavioral disturbance, psychotic disturbance, mood disturbance, and anxiety, G30.9 - Alzheimer's disease, unspecified, R32 - Unspecified urinary incontinence disposable gloves (Nitrile Exam Gloves) As directed; QID 100 ea 0RF F02.80 - Dementia in other diseases classified elsewhere, unspecified severity, without behavioral disturbance, psychotic disturbance, mood disturbance, and anxiety, G30.9 - Alzheimer's disease, unspecified, R32 - Unspecified urinary incontinence [adult pull ups] As directed; QID 120 ea 3RF F02.80 - Dementia in other diseases classified elsewhere, unspecified severity, without behavioral disturbance, psychotic disturbance, mood disturbance, and anxiety, G30.9 - Alzheimer's disease, unspecified, R32 - Unspecified urinary incontinence Discontinued acetaminophen Discontinued Reason: Patient no longer taking 1,000 mg (2 x 500 mg) PO Q6H PRN 20 tabs 0RF pain (scale score 7-10) M25.512 - Pain in left shoulder ibuprofen Discontinued Reason: Patient no longer taking 600 mg PO Q8H PRN 20 tabs 0RF pain M25.512 - Pain in left shoulder
[2024-11-15 11:42] VITALS: BP 108/58; BMI 18.9
[2024-11-15 12:04] VITALS: BP 110/60
--- OUTSIDE RECORDS SUMMARY | 2024-11-15 12:42 | XMS_ITS | Clinical Summary ---
Author Organization [facility] ity Address [address] [place] [address] Care Team Providers Care Customer Advisor Specialist Name Role Phone Unavailable Primary Care Provider [...] 1999 Zoster Vaccines (1 of 2) 1999 COVID-19 Vaccine (1 - 2023-2 5 season) 2024 RSV Immunization Adult Patie nts (1 - 1-dose 75+ series) 2024 Influenza Vaccine (#1) 2025 HIB Vaccines Aged Out No longer [...]
== END 2024-11-15 12:12 | disposition home or self-care (01) ==
LOC: HO.HMCH 11:31
PROVIDERS: PCP Internal Medicine
DX: G30.9 Alzheimer's disease, unspecified (principal); F02.80 Dementia in other diseases classified elsewhere, unspecified severity, without behavioral disturbance, psychotic disturbance, mood disturbance, and anxiety; I10 Essential (primary) hypertension; F32.A Depression, unspecified; R19.7 Diarrhea, unspecified; R19.6 Halitosis

== ENCOUNTER → 2024-11-15 11:30 | Outpatient (BNVA) | payer MEDICARE, MEDICAID, SELFPAY | PROVIDERS: PCP Internal Medicine | DX: G30.9 Alzheimer's disease, unspecified (principal); F02.80 Dementia in other diseases classified elsewhere, unspecified severity, without behavioral disturbance, psychotic disturbance, mood disturbance, and anxiety; I10 Essential (primary) hypertension; F32.A Depression, unspecified; R19.7 Diarrhea, unspecified; R19.6 Halitosis; Z13.31 Encounter for screening for depression; Z13.39 Encounter for screening examination for other mental health and behavioral disorders | CPT/HCPCS: 96127; 99212 ==

== ENCOUNTER 2025-03-21 13:52 | Outpatient (AMB) | payer MEDICARE, MEDICAID, SELFPAY ==
[2025-03-21 13:58] VITALS: BP 140/80; PULSE 90; TEMP 36.8; O2SAT 96
--- NOTE | 2025-03-21 13:58 | A.OFFPC_ITS ---
Vital Signs 03/21/25 13:58 03/21/25 14:45 Height 5 ft 6 in BP 140/80 H 120/70 Blood Pressure Location Lt brachial Lt brachial Position Sitting Sitting Pulse 90 Pulse Source Pulse Oximeter Temp 98.3 F Temp Source Temporal Artery Scan Pulse Oximetry (%) 96 Oxygen Delivery Method Room Air Intake Visit Reasons: f/u BP Accompanied by: Grand Child Allergies No Known Allergies Allergy (Verified 03/21/25 14:20) Medication List - Last Reconciled 03/21/25 by Tatiana Smith PA-C [adult pull ups As directed; QID ] amlodipine 5 mg PO DAILY blood pressure monitor As directed; to check BP daily disposable gloves (Nitrile Exam Gloves) As directed; QID [disposable wipes As directed; QID] donepezil 10 mg PO DAILY [incontinence pads As directed; QID] memantine 10 mg PO DAILY mirtazapine 30 mg PO BEDTIME fellwhch-yof-iwrth acid-lutein 400-250 mcg (Centrum Silver) 1 tab PO DAILY 2 months psyllium husk (Metamucil) 0.4 grams PO BEDTIME sertraline 25 mg PO DAILY trazodone 50 mg PO TID PRN Tobacco use date assessed: 11/15/24 Fall risk assessment: No Falls in past year Last assessed Fall Risk: 11/15/24 Dental Screening Dental Screen Date: 11/15/24 Did you have a dental visit in the last 12 months?: No Did you have a dental problem in the last 6 months where you did not have access to dental care?: No Was dental information given to patient?: No HPI f/u BP HPI Details 74-year-old female with past medical his tory of hypertension, Alzheimer's, depression last seen 11/2024 coming in for follow up. Presenting for management of chronic conditions, accompanied by her daughter. The patient has ongoing [employer]EL[employer] services through the [facility], but the family is requesting more hours to have a third family member assist with care. The primary concern is the patient's insomnia; she does not sleep through the night and has been found standing up in the dark, posing a fall risk. She has been taking melatonin 10 mg at night, but her daughter reports it is no longer effective. The patient is also prescribed mirtazapine, which she takes nightly, and trazodone, which has not been used regularly. There is also a concern about poor appetite and weight loss, as the patient sometimes refuses to eat, particularly in the afternoon. Her daughter reports she has dementia and is concerned about the patient's future care needs, including the possibility of placement in a memory care facility if she becomes bed-bound. [facility] Medical History Dementia Hypertension Alzheimer disease Alzheimer disease Surgical History History of breast surgery Family History Mother Alzheimer disease Other History of breast surgery Social History Housing: Apartment Alcohol intake: never Patient Tobacco Use Status: Never used Tobacco Tobacco use type: Cigarette e-Cigarette/Vaping Use: Never Used Second Hand Smoke Exposure: No service: No Current occupational status: unemployed Cognitive needs: No Hearing needs: No Vision needs: No Questionnaire PHQ-9 Over the last 2 weeks, how often have you been bothered by any of the following problems? 1. Little interest or pleasure in doing things: nearly every day 2. Feeling down, depressed, or hopeless: not at all 3. Trouble falling or staying asleep, or sleeping too much: nearly every day 4. Feeling tired or having little energy: more than half the days 5. Poor appetite or overeating: not at all 6. Feeling bad about yourself - or that you are a failure or have let yourself or your family down: not at all 7. Trouble concentrating on things, such as reading the newspaper or watching television: nearly every day 8. Moving or speaking so slowly that other people could have noticed. Or the opposite - being so fidgety or restless that you have been moving around a lot more than usual: nearly every day 9. Thoughts that you would be better off or of hurting yourself in some way: not at all Total score: 14 Depression Screening Interpretation: Positive Depression Screening Follow-up: Existing condition and In treatment Depression Screening Done: Yes 25678 - PHQ-9 Billing: Yes Source: Developed by Drs. Bill Diego, Laurie Teague, Sigifredo Nuñez and colleagues, with an educational shari from [employer]. Thrive Questionnaire Date Thrive assessed: 11/13/24 I am a: Parent/Caregiver What is your living situation today?: I have a steady place to live Within the past 12 months, did the food you bought not last and you didn't have the money to get more?: Never true Within the past 12 months, did you worry whether your food would run out before you got money to buy more?: Never true Do you have trouble paying for medicines?: No Do you have trouble getting transportation to medical appointments?: No Do you have trouble paying your heating and electricity bill?: No Do you have trouble taking care of your child, family member or friend?: No Do you have trouble with day-to-day activities such as bathing, preparing meals, shopping, managing finances, etc.?: No Are you currently unemployed and looking for a job?: No Are you interested in more education?: I choose not to answer this question Please select the resources that you would like help with: None Currently or been in a relationship where the following occur: No concerns reported THRIVE Score: 0 AUDIT C Alcohol Use Questionnaire (AUDIT-C) 1. How often do you have a drink containing alcohol?: Never Total Score: 0 JULIAN-7 AMB Questionnaire JULIAN-7 Date JULIAN - 7 assessed: 11/15/24 Feeling nervous, anxious, or on edge: 3 = Nearly every day Not being able to stop or control worryin = Not at all Worrying too much about different things: 0 = Not at all Trouble relaxin = Not at all Being so restless that it is hard to sit still: 1 = Several days Becoming easily annoyed or irritable: 0 = Not at all Feeling afraid as if something awful might happen: 1 = Several days Total JULIAN-7 score (0-4 normal; 5-9 mild; 10-14 moderate; 15-21 severe): 5 Source: Developed by Drs. Bill Diego, Laurie Teague, Sigifredo Nuñez and colleagues, with an educational shari from [employer]. JULIAN-7 Assessment Billing JULIAN-7 Assessment Tool: JULIAN-7 Assessment 97506 Review of Systems Const Denies body aches, Denies chills, Denies fever(s) and Denies poor appetite Eyes Reports no additional complaints ENT Denies dizziness Card Denies chest pain and Denies dyspnea Resp Denies cough and Denies dyspnea GI Denies abdominal pain, Denies nausea and Denies vomiting Reports no additional complaints Musc Denies abnormal gait Skin/Breast Reports system reviewed and no additional complaints, except as documented Neuro Denies abnormal gait and Denies dizziness Psych Reports as per HPI Physical exam (Primary Care) Vital Signs: Last Vital Signs Temp 98.3 F 03/21/25 13:58 Pulse 90 03/21/25 13:58 BP 120/70 03/21/25 14:45 Pulse Ox 96 03/21/25 13:58 Oxygen Delivery Method Room Air 03/21/25 13:58 Tobacco/Smoking Status: Tobacco use Status Tobacco use date assessed 11/15/24 03/21/25 14:00 Patient Tobacco Use Status Never used Tobacco 03/21/25 14:00 Tobacco use type Cigarette 03/21/25 14:00 e-Cigarette/Vaping Use Never Used 03/21/25 14:00 PHQ-9: PHQ-9 Score PHQ-9: Total score 14 03/21/25 14:21 Depression Screening Interpretation: Positive Depression Screening Follow-up: Existing condition and In treatment Thrive Assessment: Date of Thrive Assessment Date Thrive assessed 11/13/24 03/21/25 14:00 Currently or been in a relationship where the following occur: No concerns reported Const General: cooperative, healthy appearing, comfortable and no acute distress Orientation/consciousness: patient oriented x3 HENMT Head: Yes normocephalic Ears: hearing grossly normal bilaterally General nose exam: Normal external nose present Eyes General: appearance normal, both eyes and all related structures Conjunctivae: conjunctivae normal Neck Neck: Yes full ROM and Yes no lymphadenopathy Resp Effort & Inspection: normal respiratory effort Auscultation: clear to auscultation bilaterally, no crackles, no rales, no rhonchi and no wheezes Cardio Rate: regular rate Rhythm: regular rhythm Skin General skin exam: no rashes or lesions noted Neuro General: patient oriented x3 Gait exam (Neuro): Normal gait present Psych Affect: normal affect Coding Level of Care Code Est Pt Level 4 (85051) Diagnoses Alzheimer disease G30.9; F02.80 Hypertension I10 Depression F32.A Weight loss R63.4 Incontinence R32 Additional Codes JULIAN-7 Assessment Billing - JULIAN-7 Assessment Tool: JULIAN-7 Assessment [id number] ([id number]) PHQ-9 - 01601 - PHQ-9 Billing: Yes ([id number]) Assessment & Plan Assessment & Plan (1) Alzheimer disease: Code(s): G30.9 - Alzheimer's disease, unspecified; F02.80 - Dementia in other diseases classified elsewhere, unspecified severity, without behavioral disturbance, psychotic disturbance, mood disturbance, and anxiety Category: Medical Plan: Progressive disease patient is relying primarily on family at this time for activities of daily living. Plan to obtain [employer]EL[employer] services for this patient and we will await paperwork. 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 Avoid salt intake and encourage healthy diet and regular exercise. (3) Depression: Code(s): F32.A - Depression, unspecified Category: Medical Plan: The patient's insomnia is inadequately controlled with mirtazapine and melatonin. To address polypharmacy and improve sleep, sertraline will be discontinued due to its low, likely sub-therapeutic dose. A new prescription for trazodone will be sent to be taken nightly for its antidepressant and sedative effects. Advised to hold off on melatonin initially to prevent excessive sedation and fall risk, but it can be reintroduced at 5 mg if needed. The family was instructed to monitor for excessive tiredness or confusion and to report if these occur. (4) Weight loss: Code(s): R63.4 - Abnormal weight loss Category: Medical Plan: Prescription for boost drink sent to pharmacy. Patient weight loss due to decreased intake (5) Incontinence: Code(s): R32 - Unspecified urinary incontinence Category: Medical Plan: Continue with current regimen prescriptions were sent to pharmacy. Plan A discussion was held with the family regarding long-term care options given the patient's dementia and the caregiver's concerns. A list of local memory care facilities, including [facility], [facility], and [facility], was provided for the family to begin researching. The family was advised that a social insurance specialist can assist with placement when the time comes. This note was constructed using voice recognition software. While every effort has been made to ensure accuracy and dry goods inspector, still areas may have been included sometimes these areas may affect the content or meeting of the given symptoms. Total time spent caring for the patient today was 20 minutes. This includes time spent before the visit reviewing the chart, time spent during the visit, and time spent after the visit and documentation. Patient was informed and verbally consented to the use of an ambient scribe for clinic note documentation during this visit. Medications: New [Wipes] As directed 1 ea 0RF F02.80 - Dementia in other diseases classified elsewhere, unspecified severity, without behavioral disturbance, psychotic disturbance, mood disturbance, and anxiety, G30.9 - Alzheimer's disease, unspecified, R32 - Unspecified urinary incontinence food supplemt, lactose-reduced (Boost High Protein) 1 ea PO QID 2,844 mL 5RF R63.4 - Abnormal weight loss [Overnight adult pull ups] As directed 1 ea 0RF F02.80 - Dementia in other diseases classified elsewhere, unspecified severity, without behavioral disturbance, psychotic disturbance, mood disturbance, and anxiety, G30.9 - Alzheimer's disease, unspecified, R32 - Unspecified urinary incontinence Changed From trazodone 50 mg PO TID PRN 60 tabs 1RF anxiety To trazodone 50 mg PO BEDTIME 90 tabs 1RF anxiety Discontinued sertraline Discontinued Reason: Patient no longer taking 25 mg PO DAILY 90 tabs 0RF
[2025-03-21 14:45] VITALS: BP 120/70
== END 2025-03-21 14:56 | disposition home or self-care (01) ==
LOC: HO.HMCH 13:53
DX: G30.9 Alzheimer's disease, unspecified (principal); F02.80 Dementia in other diseases classified elsewhere, unspecified severity, without behavioral disturbance, psychotic disturbance, mood disturbance, and anxiety; I10 Essential (primary) hypertension; F32.A Depression, unspecified; R63.4 Abnormal weight loss; R32 Unspecified urinary incontinence

== ENCOUNTER → 2025-03-21 13:52 | Outpatient (BNVA) | payer MEDICARE, MEDICAID, SELFPAY | DX: I10 Essential (primary) hypertension (principal); G30.9 Alzheimer's disease, unspecified; F02.80 Dementia in other diseases classified elsewhere, unspecified severity, without behavioral disturbance, psychotic disturbance, mood disturbance, and anxiety; F32.A Depression, unspecified; R63.4 Abnormal weight loss; R32 Unspecified urinary incontinence | CPT/HCPCS: 96127; 99212 ==